=== PATIENT | female | born 1950 | race Caucasian/White ===

== ENCOUNTER → 2017-11-03 | Day surgery (SDC) | payer BC, OTHER ==
--- NOTE | 2017-11-04 14:34 | PATH ---
Cytology Non-Gynecological Report Patient Name: DENIA STEPHEN [facility]. Rec. #: [id number] /Age/Gender: 1950 (Age: 67) / F Account: [id number] Location: RADIOLOGY Taken: 11/03/2017 Received: 11/03/2017 Reported: 11/04/2017 Physicians: Alis Hay M.D. Specimen(s) Received RIGHT THYROID FNA Clinical History None Provided Final Diagnosis THYROID, RIGHT, FINE NEEDLE ASPIRATION: SATISFACTORY FOR EVALUATION. BETHESDA : PAPILLARY THYROID CARCINOMA. ATYPICAL FOLLICULAR CELLS WITH ENALRGED NUCLEI, NUCLEAR GROOVES, INTRANUCLEAR CLEARING, AND INTRANUCLEAR PSEUDOINCLUSIONS DISPERSED PAPILLARY AND SYNCITIAL FRAGMENTS. Interdepartmental case review with consensus on diagnosis, November 04, 2017. Electronically Signed Magan Duffy M.D. Addendum Reported: 11/09/2017 Addendum Diagnosis This case was discussed with Dr. Ohara on November 08, 2017. Magan Duffy M.D. Gross Description Received are six direct smears, three of which are air-dried and Diff-Quik stained, and three of which are alcohol fixed and Pap stained. Also received is 20 ml of bloody formalin from which one cellblock is prepared.
== END | disposition home or self-care (01) ==
LOC: JRADIR 07:58
PROVIDERS: ATTEND Internal Medicine Endocrinology, Diabetes & Metabolism
PROC: 0G9H3ZX Drainage of Right Thyroid Gland Lobe, Percutaneous Approach, Diagnostic (ICD-10-PCS; principal; 2017-11-03)
DX: E04.1 Nontoxic single thyroid nodule (principal)
CPT/HCPCS: 76942; 88173; 88305-TC

== ENCOUNTER 2018-10-18 16:21 | Inpatient (IN) | payer BC, OTHER ==
--- NOTE | 2018-10-18 16:41 | PDOC ---
History of Present Illness - General Chief Complaint: Irregular Heart Beat Stated Complaint: REF. BY DOCTOR Time Seen by Provider: 10/18/18 16:38 History Source: Patient, Family Exam Limitations: Language Barrier - History of Present Illness Initial Comments: 68 yo rwandan speaking F w a pmh of HTN, Hypothyroidism, HLD, GERD, multiple surgeries, NIDDM, TIA, GERD, osteoarthritis, osteoporosis presents to the ER via private auto sent in from Dr. Lev Ingram's office. Her chief complaint in the ER is that her heart rate is slow, she has a headache and some shortness of breath. The patient also states she has been experiencing left face , arm, and leg numbness since 8 AM this morning when she woke up. PCP: Favian Avina [employer] Teacher: Lev ingram Cardiology: Dr. Rashid PSH: C-spine surgery, B/L TKR, B/L shoulder sx, B/L bunion sx, B/L hand sx, hysterectomy Social Hx: Denies smoking, drinking, or other substance usage. Allergies: Aspirin, egg, egg yolk Meds: Norvasc, metformin, vitamin D3, crestol, prilosec, lyrica Past History - Past Medical History Allergies/Adverse Reactions: Allergies Allergy/AdvReac Type Severity Reaction Status Date / Time aspirin Allergy Verified 04/13/16 18:53 egg Allergy Verified 04/13/16 18:53 egg yolk Allergy Verified 04/13/16 18:53 Home Medications: Ambulatory Orders Celecoxib [CeleBREX -] 50 mg PO BID 04/05/16 Donepezil HCl [Aricept -] 10 mg PO DAILY 04/05/16 Escitalopram Oxalate [Lexapro -] 10 mg PO DAILY 04/05/16 Levothyroxine [Synthroid -] 50 mcg PO DAILY 04/05/16 Omeprazole Magnesium [Prilosec] 40 mg PO DAILY 04/05/16 Simvastatin [Zocor -] 40 mg PO HS 04/05/16 traZODone HCL [Trazodone HCl] 50 mg PO ASDIR 04/05/16 Ramipril [Altace] 2.5 mg PO DAILY #30 capsule 04/07/16 Acetaminophen/Caffeine/Butalb [Fioricet -] 1 tab PO Q6H PRN #12 tablet MDD 4 Butalb/Acetaminophen/Caffeine [Fioricet 50-300-40 mg Capsule] 1 each PO QID PRN #12 capsule 04/14/16 Pregabalin [Lyrica -] 75 mg PO TID #90 capsule MDD 3 06/09/18 COPD: No HTN: Yes Hypercholesterolemia: Yes - Suicide/Smoking/Psychosocial Hx Smoking History: Never smoked Have you smoked in the past 12 months: No If you are a former smoker, when did you quit?: 25 years ago Hx Alcohol Use: No Drug/Substance Use Hx: No Substance Use Type: None Review of Systems - Review of Systems Able to Perform ROS?: Yes Comments:: CONSTITUTIONAL: Absent: fever, no chills, no fatigue EYES: Absent: visual changes ENT: Absent: ear pain, no sore throat CARDIOVASCULAR: Absent: chest pain, no palpitations RESPIRATORY: Present: SOB Absent: cough GI: Absent: abdominal pain, no nausea, no vomiting, no constipation, no diarrhea GENITOURINARY: Absent: dysuria, no frequency, no hematuria MUSKULOSKELETAL: Absent: back pain, no arthralgia, no myalgia SKIN: Absent: rash NEURO: Present: headache, paresthesia, tingling Absent: focal weakness, dizziness, unsteady gait, seizure, mental status changes , bladder or bowel incontinence *Physical Exam - Vital Signs Last Vital Signs Temp Pulse Resp BP Pulse Ox 97.9 F 42 L 22 H 158/73 100 10/18/18 16:32 10/18/18 19:12 10/18/18 19:12 10/18/18 19:12 10/18/18 19:12 - Physical Exam Comments: GENERAL: Well-appearing, well-nourished. No apparent distress. HEENT: Normocephalic, atraumatic. PERRL, EOM intact. CARDIOVASCULAR: Bradycardic rate. Normal S1, S2. Regular rhythm. PULMONARY: No evidence of respiratory distress. Lungs clear to auscultation bilaterally. No wheezing, rales or rhonchi. ABDOMEN: Soft, non-distended, non-tender. EXTREMITIES: Normal ROM in all four extremities. No gross deformities. SKIN: Warm, dry. No rash NEUROLOGICAL: Alert, awake, appropriate. Cranial nerves 2-12 intact. No deficits to light touch in face, upper extremities and lower extremities. No motor deficits in the in face, upper extremities and lower extremities. Normal speech. Heart Score/ECG Review - History History: Slightly suspicious - Electrocardiogram EKG: Normal - Age Age: >/= 65 - Risk Factors Risk Factors Heart Score: Yes Hx Hypercholesterolemia, Yes Hx Hypertension, Yes Hx Diabetes Based on the list above the patient has:: >/=3 risk factors or Hx atherosclerotic disease - Troponin Troponin: </= normal limit - Score Heart Score - Total: 4 - ECG Intrepretation Rhythm: Regular Rhythm - [place]veld: Normal - QRS Widened: RBBB - ECG Impressions Normal ECG: No Bradycardia: Yes ED Treatment Course - LABORATORY CBC & Chemistry Diagram: 10/18/18 17:23 10/18/18 17:23 - ADDITIONAL ORDERS Additional order review: Laboratory Results 10/18/18 10/18/18 10/18/18 17:23 17:23 17:23 PT with INR INR Sodium 139 Potassium 4.8 Chloride 106 Carbon Dioxide 25 Anion Gap 9 BUN 18 Creatinine 0.8 Creat Clearance w eGFR 71.76 Random Glucose 90 Calcium 9.4 Magnesium 2.0 Total Bilirubin 0.3 AST 74 H ALT 88 H Alkaline Phosphatase 211 H Creatine Kinase 86 Troponin I < 0.02 B-Natriuretic Peptide 170.3 H Total Protein 7.9 Albumin 2.6 L TSH 0.90 Free T4 1.38 Blood Type A POSITIVE Antibody Screen Negative 10/18/18 17:23 PT with INR Cancelled INR Cancelled Sodium Potassium Chloride Carbon Dioxide Anion Gap BUN Creatinine Creat Clearance w eGFR Random Glucose Calcium Magnesium Total Bilirubin AST ALT Alkaline Phosphatase Creatine Kinase Troponin I B-Natriuretic Peptide Total Protein Albumin TSH Free T4 Blood Type Antibody Screen 10/18/18 17:23 RBC 4.92 MCV 82.8 MCHC 32.2 RDW 14.6 MPV 10.0 D Neutrophils % 48.7 Lymphocytes % 38.1 Monocytes % 7.2 Eosinophils % 4.8 H Basophils % 1.2 - RADIOLOGY Radiology Studies Ordered: Category Date Time Status HEAD CT WITHOUT CONTRAST [CT] Stat CT Scan 10/18/18 17:12 Completed CHEST X-RAY PORTABLE* [RAD] Stat Radiology 10/18/18 16:41 Completed Radiograph Interpretation: Head CT: Cranial CT without contrast Clinical information: neuro/altered mental status/ headache No intraparenchymal hemorrhage is seen. There is no CT evidence of acute subarachnoid hemorrhage. Correlate clinically. No extra-axial fluid collection is noted. There is no discrete infarct within the limitations of CT. As on a previous CT study of 04/13/2016 an approximately 0.6 cm calcified dural based focus is seen along the right parietal lobe at the mid to high convexity level laterally probably representing a meningioma. No perilesional edema is seen. There is no gross intra -axial mass lesion on noncontrast imaging. The ventricles and cisterns appear unremarkable. No calvarial defect is noted. The partially imaged paranasal sinuses demonstrate no opacification. Impression: No CT evidence of acute intracranial pathology. There is been no obvious interval change comparison to a prior CT exam of 04/13/2016. A 0.6 cm calcified dural based right parietal focus is again seen probably representing a stable meningioma. Correlation with one year follow-up MRI/CT is suggested to document continued stability. - Medications Given in the ED: ED Medications Discontinued Medications Generic Name Dose Route Start Last Admin Trade Name Freq PRN Reason Stop Dose Admin Acetaminophen 1,000 mg 10/18/18 19:29 10/18/18 20:16 Ofirmev Injection - IVPB 10/18/18 19:30 1,000 mg ONCE ONE Administration Clopidogrel Bisulfate 75 mg 10/18/18 19:45 10/18/18 20:45 Plavix - PO 10/18/18 19:46 75 mg ONCE ONE Administration Metoclopramide HCl 10 mg 10/18/18 19:30 10/18/18 20:45 Reglan Injection - IVPUSH 10/18/18 19:31 10 mg ONCE ONE Administration Sodium Chloride 1,000 ml 10/18/18 19:30 10/18/18 20:16 Normal Saline - IV 10/18/18 19:31 1,000 ml ONCE ONE Administration Medical Decision Making - Medical Decision Making 68 yo rwandan speaking F w a pmh of HTN, Hypothyroidism, HLD, GERD, multiple surgeries, NIDDM, TIA, GERD, osteoarthritis, osteoporosis presents to the ER via private auto sent in from Dr. Lev Ingram's office. Her chief complaint in the ER is that her heart rate is slow, she has a headache and some shortness of breath. The patient also states she has been experiencing left face , arm, and leg numbness since 8 AM this morning when she woke up. VS: Bradycardia, otherwise wnl DDx IBNLT: CVA/TIA, ACS/RI, arrhythmia, hypo/hyperthyroidism, electrolyte/ metabolic derangement, PNA, UTI, pneumothorax. Plan: Labs, Urine, EKG, CXR, Head CT, cards consult, neuro consult, admit tele. EKG: Sinus Neo. Cards Consult - Dr. Rodriguez - Agrees with plan. Neuro Consult - Dr. mondragon - agrees with plan reccommends giving 75 of clopidogrel bc patient is allergic to aspirin. He will see patient later tongiht. Labs notable for elevated LFT's Head Ct shows no new acute pathology. CXR: unremarkable. Will admit to Tele Obs for r/o stroke and to have a more thorough cardio and neuro work up including echo, brain MRI, carotid doppler. *DC/Admit/Observation/Transfer Diagnosis at time of Disposition: Bradycardia, Paresthesia, Left face and left arm tingling, Left facial numbness , Elevated LFTs, Stroke-like symptoms - Discharge Dispostion Condition at time of disposition: Stable Decision to Admit order: Yes - Referrals - Patient Instructions - Post Discharge Activity tPA Exclusion checklist 3-4.5h - Time Elapsed Date last known well: 10/17/18 Time last known well: 21:00 Elaspsed time: 1 Day(s) and 1 Hour(s) and 16 Minutes - Thrombolytic Therapy Candidate Is patient eligible for thrombolytic therapy: No - Exclusion Criteria 3-4.5 hr SBP greater than 185 or DBP greater than 110mmHg despite tx: No Recent IC/spinal surgery,head trauma or stroke<3mos.: No Hx IC hemorrhage, IC neoplasm, AV malformation or aneurysm: No Active internal bleeding: No Blding diathesis(low plt ct, inc PTT,INR>1.7 or use of NOAC): No Symptoms suggest subarachnoid hemorrhage: No CT demonstrates multilobar infarct(>1/3 cerebral hemiphere): No Arterial puncture at noncompressible site in previous 7 days: No Blood glucose concentration less than 50mg/dL (2.7mmol/L): No - Relative Exclusion Criteria 3-4.5 hr Life expectancy <1 yr or severe co-morbid illness: No : No Patient/family refused: No Rapid improvement: Yes Stroke severity too mild: Yes Recent acute RI (w/in previous 3 months): No Seizure at onset with postictal residual neuro impairments: No Major surgery or serious trauma w/in previous 14 days: No Recent GI or hemorrhage (w/in previous 21 days): No - Add'l Relative Exclusion 3-4.5 hr Age > 80: No Hx of both diabetes AND prior ischemic stroke: Yes Taking an oral anticoagulant regardless of INR: Yes NIHSS >25: No - Ineligibility reason(s) Reasons No tPA given: Outside of window - delayed arrival NIH Stroke Scale - Last Known Well Date/Time & Onset Date Last Known Well: 10/17/18 Time Last Known Well: 21:00 - Initial Evaluation Level of consciousness: Alert Ask patient the month and their age: Answers both correctly Ask patient to open & close eyes; make fist and let go: Obeys both correctly Best gaze (horizontal eye movement): Normal Visual field testing: No visual field loss Facial paresis (Show teeth/raise eyebrows/close eyes tight): Normal symmetrical movement Motor Function: Left Arm: Normal Motor Function: Right Arm: Normal (extends arm 90 (or 45) degrees for 10 seconds without drift Motor Function: Left Leg: Normal (extends leg 30 degrees for 5 seconds without drift) Motor Function: Right Leg: Normal (extends leg 30 degrees for 5 seconds without drift) Limb Ataxia: No ataxia Sensory(Use pinprick test arms,legs,trunk,face/side to side): Normal Best language (Describe picture, name items, read sentences): No Aphasia Dysarthria (read several words): Normal articulation Extinction and Inattention: No abnormality - Total Score NIH Stroke Scale Score: 0
[2018-10-18 17:38] LABS: BASO % 1.2 % (0-2.0); EOS % 4.8 % (0-4.5); HEMATOCRIT 40.7 % (32.4-45.2); HEMOGLOBIN 13.1 GM/dL (10.7-15.3); LYMPH % 38.1 % (8-40); MCH 26.6 pg (25.7-33.7); MCHC 32.2 g/dl (32.0-36.0); MEAN CELL VOLUME 82.8 fl (80-96); MONO % 7.2 % (3.8-10.2); NEUT % 48.7 % (42.8-82.8); PLATELET COUNT 259 K/MM3 (134-434); RBC 4.92 M/mm3 (3.60-5.2); RDW 14.6 % (11.6-15.6); WHITE BLOOD COUNT 8.9 K/mm3 (4.0-10.0)
--- NOTE | 2018-10-18 17:54 | PDOC ---
Documentation entered by Beatriz Caba SCRIBE, acting as scribe for Jennifer Stanford DO. Jennifer Stanford DO: This documentation has been prepared by the Gertrudis ramirez Nirvannie, SCRIBE, under my direction and personally reviewed by me in its entirety. I confirm that the documentation accurately reflects all work, treatment, procedures, and medical decision making performed by me. Attending Attestation - Resident Resident Name: Stuart Torres - ED Attending Attestation I have performed the following: I have examined & evaluated the patient, The case was reviewed & discussed with the resident, I agree w/resident's findings & plan - HPI HPI: 10/18/18 17:57 The patient is a 68 year old female, with a significant past medical history of HTN, HLD, NIDDM, GERD, and multiple surgeries, NIDDM, TIA, GERD, osteoarthritis , osteoporosis, who presents to the emergency department with, bradycardia (on EKG), headache, left sided numbness (facial, arm, leg . Prior to his arrival, patient was at his endocrinologists office at which time he was advised to report to the ED for further evaluation. As per EMR, patient presented with similar symptoms in 2016 at which time it was diagnosed as a tension headache. She denies recent fevers, chills, or dizziness. She denies recent nausea, vomit , diarrhea or constipation. She denies recent dysuria, frequency, urgency or hematuria. Allergies: Aspirin, egg, egg yolk Social history: Nonsmoker. Denies EtOH use and recreational drug use. Primary Care Physician: Dr. Favian Avina [employer] Sergeant: Dr. Ohara Cardiology: Dr. Rashid Neurologist: Dr. Hector Last known well: 9:00pm - Physicial Exam PE: 10/18/18 18:57 Constitutional: Awake, alert, oriented. No acute distress. Head: Normocephalic. Atraumatic Eyes: PERRL. EOMI. Conjunctivae are not pale. ENT: Mucous membranes are moist and intact. Posterior pharynx without exudates or erythema. Uvula midline. Neck: Supple. Full ROM. No lymphadenopathy. Cardiovascular: +Bradycardic. Regular rhythm. Distal pulses are 2+ and symmetric. Pulmonary/Chest: No evidence of respiratory distress. Clear to auscultation bilaterally No wheezing, rales or rhonchi. Abdominal: Soft and non-distended. There is no tenderness. No rebound, guarding or rigidity. No organomegaly. No palpable masses. Good bowel sounds. Back: No CVA tenderness. Musculoskeletal: No edema. No cyanosis. No clubbing. Full range of motion in all extremities. No calf tenderness. Radial/pedal pulses are intact and 2+ bilaterally Skin: Skin is warm and dry. No petechiae. No purpura. Neurological: +Decreased sensation to the left side of the face, arms, and legs. Alert and oriented to person, place, and time. Cranial nerves II-XII are grossly intact. Normal speech. Strength is grossly symmetric. Psychiatric: Good eye contact. Normal interaction, affect and behavior. - Medical Decision Making 10/18/18 19:16 a/p: 68yo female with peters, paresthesias to L face and L arm/leg that she woke up with today -seen by Dr. Ohara and sent in for bradycardia and symptoms -pt arrives bradycardic -c/o headache -no syncope -no cp -will send labs, tsh, ekg, head ct -outside the window for tpa -mild sensory changes on exam, but no weakness -will monitor and reassess 10/18/18 19:29 I, Dr. Jennifer Stanford, DO, attest that this document has been prepared under my direction and personally reviewed by me in its entirety. I further attest, that it accurately reflects all work, treatment, procedures and medical decision -making performed by me. 10/18/18 19:29 no acute findings on head ct 10/18/18 19:29 mildly elevated lfts pending ua 10/18/18 20:08 microblog sent to [facility] for obs for peters and bradycardia 10/18/18 20:37 resident discussed the case with [facility] - Dr. Reza who agrees with obs placement Heart Score/ECG Review - ECG Intrepretation Comment:: 10/18/18 17:54 sinus durga at 42, rbbb, lvh, t wave inversions inferior leads- unchanged from 2016 ekg
[2018-10-18 18:16] LABS: ALBUMIN 2.6 g/dl (3.4-5.0); ALK PHOS 211 U/L (45-117); ANION GAP 9 MMOL/L (8-16); BILIRUBIN,TOTAL 0.3 mg/dL (0.2-1); BLOOD UREA NITROGEN 18 mg/dL (7-18); CALCIUM 9.4 mg/dL (8.5-10.1); CHLORIDE 106 mmol/L (98-107); CO2 25 mmol/L (21-32); CREATININE 0.8 mg/dL (0.55-1.3); GLUCOSE,RANDOM 90 mg/dL (74-106); N-TERMINAL BNP 170.3 pg/ml (5-125); POTASSIUM 4.8 mmol/L (3.5-5.1); SGOT/AST 74 U/L (15-37); SGPT/ALT 88 U/L (13-61); SODIUM 139 mmol/L (136-145); TOT PROT 7.9 g/dl (6.4-8.2)
[2018-10-18] MEDS ORDERED: ACETAMINOPHEN 1000 MG/100 ML VIAL (NON FORMULARY) IVPB ONE (19:29)
[2018-10-18] MEDS ORDERED: SODIUM CHLORIDE 0.9% 500 ML INFUS.BAG IV ONE (19:30)
[2018-10-18] MEDS ORDERED: METOCLOPRAMIDE HCL INJECTION 10 MG/2 ML VIAL IVPUSH ONE (19:30)
[2018-10-18] MEDS ORDERED: CLOPIDOGREL BISULFATE 75 MG TABLET (FP) PO ONE (19:45)
[2018-10-18] MEDS ORDERED: METOCLOPRAMIDE HCL INJECTION 10 MG/2 ML VIAL ONE (19:57)
[2018-10-18] MEDS ORDERED: ACETAMINOPHEN INJECTION 100 ML IVPB ONE (19:57)
[2018-10-18] MEDS ORDERED: CLOPIDOGREL BISULFATE 75 MG TABLET (FP) ONE (20:26)
--- NOTE | 2018-10-18 20:37 | HP ---
CHIEF COMPLAINT: left sided numbness, weakness PCP: Dr. Favian Avina HISTORY OF PRESENT ILLNESS: 68yo woman c/o left facial upper extremity and lower extremity paresthesias as well as paresthesias around her lips which started 02/17 when she woke up in the morning, associated with headache. She also c/o some left upper and lower extremity weakness. SHe denied any dysarthria, dysphagia, ataxia, visual, or hearing disturbances. She went for endocrine apt with Dr. Ohara and found to be very bradycardic. Denied any syncopal episodes but reported some fatigue with exertion. She has urged to come to hospital for further evaluation. ER course was notable for: (1) head ct (2) ekg (3) Recent Travel: no PAST MEDICAL HISTORY: HTN, HLD, NIDDM, GERD, NIDDM, TIA, GERD, osteoarthritis, osteoporosis, hypothyroidism s/p thyroidectomy, bradycardia PAST SURGICAL HISTORY: multiple - thyroidectomy, b/l shoulder surgery, b/l knee replacement, neck surgery with cervical hardware in place, b/l ocular lens replacement Social History: Smoking: no Alcohol: no Drugs: no Family History: no Allergies aspirin Allergy (Verified 04/13/16 18:53) egg Allergy (Verified 04/13/16 18:53) egg yolk Allergy (Verified 04/13/16 18:53) HOME MEDICATIONS: Home Medications Medication Instructions Recorded Celecoxib [CeleBREX -] 50 mg PO BID 04/05/16 Donepezil HCl [Aricept -] 10 mg PO DAILY 04/05/16 Escitalopram Oxalate [Lexapro -] 10 mg PO DAILY 04/05/16 Levothyroxine [Synthroid -] 50 mcg PO DAILY 04/05/16 Omeprazole Magnesium [Prilosec] 40 mg PO DAILY 04/05/16 Simvastatin [Zocor -] 40 mg PO HS 04/05/16 traZODone HCL [Trazodone HCl] 50 mg PO ASDIR 04/05/16 Ramipril [Altace] 2.5 mg PO DAILY #30 capsule 04/07/16 Acetaminophen/Caffeine/Butalb 1 tab PO Q6H PRN #12 tablet MDD 4 04/14/16 [Fioricet -] Butalb/Acetaminophen/Caffeine 1 each PO QID PRN #12 capsule 04/14/16 [Fioricet 50-300-40 mg Capsule] Pregabalin [Lyrica -] 75 mg PO TID #90 capsule MDD 3 06/09/18 REVIEW OF SYSTEMS CONSTITUTIONAL: Absent: fever, chills, diaphoresis, malaise, loss of appetite, weight change present- generalized weakness, HEENT: Absent: rhinorrhea, nasal congestion, throat pain, throat swelling, difficulty swallowing, mouth swelling, ear pain, eye pain, visual changes CARDIOVASCULAR: Absent: chest pain, syncope, palpitations, irregular heart rate, lightheadedness , peripheral edema RESPIRATORY: Absent: cough, shortness of breath, orthopnea, wheezing, stridor, hemoptysis present- dyspnea with exertion, GASTROINTESTINAL: Absent: abdominal pain, abdominal distension, nausea, vomiting, diarrhea, constipation, melena, hematochezia GENITOURINARY: Absent: dysuria, frequency, urgency, hesitancy, hematuria, flank pain, genital pain MUSCULOSKELETAL: Absent: myalgia, arthralgia, joint swelling, back pain, neck pain SKIN: Absent: rash, itching, pallor HEMATOLOGIC/IMMUNOLOGIC: Absent: easy bleeding, easy bruising, lymphadenopathy, frequent infections ENDOCRINE: Absent: unexplained weight gain, unexplained weight loss, heat intolerance, cold intolerance NEUROLOGIC: Absent, dizziness, unsteady gait, seizure, mental status changes, bladder or bowel incontinence present- focal weakness or paresthesias, : headache PSYCHIATRIC: Absent: anxiety, depression, suicidal or homicidal ideation, hallucinations. PHYSICAL EXAMINATION Vital Signs - 24 hr 10/18/18 10/18/18 16:32 19:12 Temperature 97.9 F Pulse Rate 45 L Pulse Rate [ 42 L Apical] Respiratory 16 22 H Rate Blood Pressure 141/81 Blood Pressure 158/73 [Right Arm] O2 Sat by Pulse 96 100 Oximetry (%) GENERAL: Awake, alert, and fully oriented, in no acute distress. HEAD: Normal with no signs of trauma. EYES: Pupils equal, round and reactive to light, extraocular movements intact, sclera anicteric, conjunctiva clear. No lid lag. EARS, NOSE, THROAT: Ears normal, nares patent, oropharynx clear without exudates. Moist mucous membranes. NECK: Normal range of motion, scar visible s/p thyroidectomy LUNGS: Breath sounds equal, clear to auscultation bilaterally. No wheezes, and no crackles. No accessory muscle use. HEART: Regular rate and rhythm, normal S1 and S2 without murmur, rub or gallop. ABDOMEN: Soft, nontender, not distended, normoactive bowel sounds, no guarding, no rebound, no masses. MUSCULOSKELETAL: Normal range of motion at all joints. No bony deformities or tenderness. No CVA tenderness. UPPER EXTREMITIES: 2+ pulses, warm, well-perfused. No cyanosis. No clubbing. No peripheral edema. LOWER EXTREMITIES: 2+ pulses, warm, well-perfused. No calf tenderness. No peripheral edema. NEUROLOGICAL: decreased sensation on left face, left upper ext, left lower ext relative to her right side. Motor 4/5 on left upper and lower ext, speech intact , cranial nerves otherwise grossly intact PSYCHIATRIC: Cooperative. Good eye contact. Appropriate mood and affect. SKIN: Warm, dry, normal turgor, no rashes or lesions noted, normal capillary refill. Laboratory Results - last 24 hr 10/18/18 10/18/18 10/18/18 17:23 17:23 17:23 WBC 8.9 RBC 4.92 Hgb 13.1 Hct 40.7 MCV 82.8 MCH 26.6 MCHC 32.2 RDW 14.6 Plt Count 259 MPV 10.0 D Absolute Neuts (auto) 4.3 Neutrophils % 48.7 Lymphocytes % 38.1 Monocytes % 7.2 Eosinophils % 4.8 H Basophils % 1.2 Nucleated RBC % 0 PT with INR Cancelled INR Cancelled Sodium 139 Potassium 4.8 Chloride 106 Carbon Dioxide 25 Anion Gap 9 BUN 18 Creatinine 0.8 Creat Clearance w eGFR 71.76 Random Glucose 90 Calcium 9.4 Magnesium 2.0 Total Bilirubin 0.3 AST 74 H ALT 88 H Alkaline Phosphatase 211 H Creatine Kinase 86 Troponin I < 0.02 B-Natriuretic Peptide 170.3 H Total Protein 7.9 Albumin 2.6 L TSH Free T4 Blood Type Antibody Screen 10/18/18 10/18/18 17:23 17:23 WBC RBC Hgb Hct MCV MCH MCHC RDW Plt Count MPV Absolute Neuts (auto) Neutrophils % Lymphocytes % Monocytes % Eosinophils % Basophils % Nucleated RBC % PT with INR INR Sodium Potassium Chloride Carbon Dioxide Anion Gap BUN Creatinine Creat Clearance w eGFR Random Glucose Calcium Magnesium Total Bilirubin AST ALT Alkaline Phosphatase Creatine Kinase Troponin I B-Natriuretic Peptide Total Protein Albumin TSH 0.90 Free T4 1.38 Blood Type A POSITIVE Antibody Screen Negative Imaging studies reviewed - head CT was negative for acute insults ekg showed sinus bradycardia ASSESSMENT/PLAN: #TIA r/o CVA -clinically c/w CVA, but lacks radiological findings. left sided paresthesias/ weakness still persist. -tele/obs -NPO -bed rest -fall precautions -clopidogrel (ASA allergy) -statin -moderate to high dose -echo -carotid duplex u/s -brain MRI- no contrast -neurology evaluation -physical therapy -speech and swallow eval -tylenol po prn for headache #Bradycardia -sinus bradycardia, BP stable. Possibly symptomatic as patient c/o early exertion. SHould r/o hypothyroidism as patient had recent thyroidectomy -monitor on telemetry -send TSH, free t4 -avoid bblockers, CCB -cardiology consult #Hypothyroidism -tsh, t4 -c/w home dose levothyroxine -75mcg daily #DM -BGM - pt NPO for now -order a1c #DVT ppx -heparin sc Visit type - Emergency Visit Emergency Visit: Yes ED Registration Date: 10/18/18 Care time: The patient presented to the Emergency Department on the above date and was hospitalized for further evaluation of their emergent condition. - New Patient This patient is new to me today: Yes Date on this admission: 10/18/18 - Critical Care Critical Care patient: No
[2018-10-18] MEDS ORDERED: ACETAMINOPHEN/CAFFEINE/BUTALBITAL 1 TAB PO PRN (20:44)
[2018-10-18] MEDS ORDERED: PREGABALIN 25 MG CAPSULE ONE (22:00)
[2018-10-18] MEDS ORDERED: HEPARIN NA (PORCINE) 5,000 UNITS/ML 1ML VIAL ONE (22:00)
[2018-10-18] MEDS ORDERED: ACETAMINOPHEN 325 MG TABLET (FP) PO PRN (22:11)
[2018-10-18 22:23] LABS: PH,URINE 6.5 (5.0-8.0); URINE APPEARANCE CLOUDY; URINE BILIRUBIN NEGATIVE (NEGATIVE); URINE COLOR YELLOW; URINE GLUCOSE (UA) NEGATIVE (NEGATIVE); URINE KETONE NEGATIVE (NEGATIVE); URINE LEUK ESTERASE NEGATIVE (NEGATIVE); URINE NITRITE NEGATIVE (NEGATIVE); URINE PROTEIN NEGATIVE (NEGATIVE); URINE UROBILINOGEN 0.2 mg/dL (0.2-1.0)
[2018-10-18] MEDS: HEPARIN NA (PORCINE) 5,000 UNITS/ML 1ML VIAL SQ SCH (22:29)
[2018-10-18] MEDS: PREGABALIN 75 MG CAPSULE PO SCH (22:29)
[2018-10-19] MEDS ORDERED: PREGABALIN 25 MG CAPSULE ONE ×2 (05:37→15:52)
[2018-10-19] MEDS ORDERED: LEVOTHYROXINE NA 25 MCG TABLET (FP) ONE (05:37)
[2018-10-19] MEDS: LEVOTHYROXINE NA 75 MCG TABLET (FP) PO SCH (06:03)
[2018-10-19] MEDS: PREGABALIN 75 MG CAPSULE PO SCH ×2 (06:03→22:09)
[2018-10-19] MEDS ORDERED: LEVOTHYROXINE NA 50 MCG TABLET (FP) PO SCH (07:00)
[2018-10-19 08:25] LABS: BASO % 0.5 % (0-2.0); EOS % 5.4 % (0-4.5); HEMATOCRIT 36.8 % (32.4-45.2); HEMOGLOBIN 11.8 GM/dL (10.7-15.3); LYMPH % 43.2 % (8-40); MCH 26.3 pg (25.7-33.7); MEAN PLT VOLUME 10.1 fl (7.5-11.1); MONO % 7.1 % (3.8-10.2); NEUT % 43.8 % (42.8-82.8); PLATELET COUNT 245 K/MM3 (134-434); RBC 4.49 M/mm3 (3.60-5.2); RDW 14.3 % (11.6-15.6); WHITE BLOOD COUNT 7.2 K/mm3 (4.0-10.0)
[2018-10-19 08:52] LABS: ANION GAP 6 MMOL/L (8-16); BLOOD UREA NITROGEN 14 mg/dL (7-18); CALCIUM 8.9 mg/dL (8.5-10.1); CHLORIDE 107 mmol/L (98-107); CO2 28 mmol/L (21-32); CREATININE 0.8 mg/dL (0.55-1.3); GLUCOSE,RANDOM 94 mg/dL (74-106); POTASSIUM 4.4 mmol/L (3.5-5.1); SODIUM 141 mmol/L (136-145)
--- NOTE | 2018-10-19 10:00 | CON.NEURO ---
Consult Consult Specialty:: Tawny Referred by:: ER Reason for Consultation:: Parathesia - History of Present Illness History of Present Illness: 68 years old woman with pmh CAD OA HTN Chol Anxiety Memory problem Came in with numbness No fall NIHSS was 1 Not a candidate for TPA - History Source History Provided By: Patient Limitations to Obtaining History: No Limitations - Alcohol/Substance Use Hx Alcohol Use: No - Smoking History Smoking history: Never smoked Have you smoked in the past 12 months: No If you are a former smoker, when did you quit?: 25 years ago Home Medications - Allergies Allergies/Adverse Reactions: Allergies Allergy/AdvReac Type Severity Reaction Status Date / Time aspirin Allergy Verified 10/19/18 09:59 egg Allergy Verified 10/19/18 09:59 egg yolk Allergy Verified 10/19/18 09:59 - Home Medications Home Medications: Ambulatory Orders Celecoxib [CeleBREX -] 50 mg PO BID 04/05/16 Donepezil HCl [Aricept -] 10 mg PO DAILY 04/05/16 Escitalopram Oxalate [Lexapro -] 10 mg PO DAILY 04/05/16 Levothyroxine [Synthroid -] 50 mcg PO DAILY 04/05/16 Omeprazole Magnesium [Prilosec] 40 mg PO DAILY 04/05/16 Simvastatin [Zocor -] 40 mg PO HS 04/05/16 traZODone HCL [Trazodone HCl] 50 mg PO ASDIR 04/05/16 Ramipril [Altace] 2.5 mg PO DAILY #30 capsule 04/07/16 Acetaminophen/Caffeine/Butalb [Fioricet -] 1 tab PO Q6H PRN #12 tablet MDD 4 Butalb/Acetaminophen/Caffeine [Fioricet 50-300-40 mg Capsule] 1 each PO QID PRN #12 capsule 04/14/16 Pregabalin [Lyrica -] 75 mg PO TID #90 capsule MDD 3 06/09/18 Family Disease History - Family Disease History Family History: Denies (CVA) Review of Systems - Review of Systems Constitutional: reports: No Symptoms Eyes: reports: No Symptoms Neurological: reports: Headache, Incoordination, Numbness, Parasthesia Physical Exam-Neuro Vital Signs: Vital Signs Temperature 97.9 F 10/19/18 04:17 Pulse Rate 42 L 10/19/18 04:17 Respiratory Rate 22 H 10/18/18 19:12 Blood Pressure 131/72 10/19/18 04:17 O2 Sat by Pulse Oximetry (%) 96 10/19/18 04:17 Constitutional: Yes: Well Nourished Neck: Yes: WNL Labs: CBC, BMP 10/19/18 07:20 10/19/18 07:20 INR, PTT INR Cancelled 10/18/18 17:23 - Neuro Exam Level Of Consciousness: Yes: Oriented to Person, Oriented to Place, Oriented to Time Eyes: Yes: PERRLA Speech: WNL Dominant Hand: Right Cranial Nerves II-XII Intact: Yes Gag: Present Response to light touch: Normal Response to pain prick: Normal Response to temperature: Normal Response to vibration: Normal Motor Strength: 3/5: Left Arm, Right Arm, Left Leg, Right Leg Gait: Deferred Imaging - Results Cat Scan: Image Reviewed Problem List - Problems (1) Left facial numbness Assessment/Plan: Rule out Thalamic Lacunar stroke MRI brain with no Jack ASA ECho C duplex Code(s): R20.0 - ANESTHESIA OF SKIN
[2018-10-19] MEDS: PANTOPRAZOLE 40 MG TABLET (FP) PO SCH (10:47)
[2018-10-19] MEDS: ESCITALOPRAM OXALATE 10 MG TABLET (FP) PO SCH (10:47)
[2018-10-19] MEDS: RAMIPRIL 2.5 MG CAPSULE (FP) PO SCH (10:47)
[2018-10-19] MEDS: HEPARIN NA (PORCINE) 5,000 UNITS/ML 1ML VIAL SQ SCH ×2 (10:47→22:07)
--- NOTE | 2018-10-19 12:08 | EKG ---
Test Reason : Blood Pressure : / mmHG Vent. Rate : 042 BPM Atrial Rate : 042 BPM P-R Int : 172 ms QRS Dur : 124 ms QT Int : 548 ms P-R-T Axes : 041 -03 -10 degrees QTc Int : 457 ms MARKED SINUS BRADYCARDIA RIGHT BUNDLE BRANCH BLOCK MODERATE VOLTAGE CRITERIA FOR LVH, MAY BE NORMAL VARIANT ABNORMAL ECG WHEN COMPARED WITH ECG OF 13-APR-2016 21:30, NO SIGNIFICANT CHANGE WAS FOUND Confirmed by PETE COX, GERI ([id number]) on 10/19/2018 12:08:19 PM Referred By: Confirmed By:GERI FREEMAN MD
--- NOTE | 2018-10-19 13:40 | PN ---
Progress Note (short form) - Note Progress Note: continues to have numbness on the whole L side of her body. no improvement since arrival. denies Cp, SOB, fever, chills, N/V/C/D or dizzyness Current Medications Generic Name Dose Route Start Last Admin Trade Name Freq PRN Reason Stop Dose Admin Acetaminophen 650 mg 10/18/18 22:11 Tylenol - PO Q6H PRN HEADACHE Atorvastatin Calcium 40 mg 10/19/18 22:00 Lipitor - PO HS J LUIS Donepezil HCl 10 mg 10/19/18 22:00 Aricept - PO HS J LUIS Escitalopram Oxalate 10 mg 10/19/18 10:00 10/19/18 10:47 Lexapro - PO 10 mg DAILY J LUIS Administration Heparin Sodium (Porcine) 5,000 unit 10/18/18 22:00 10/19/18 10:47 Heparin - SQ 5,000 unit BID J LUIS Administration Levothyroxine Sodium 75 mcg 10/19/18 07:00 10/19/18 06:03 Synthroid - PO 75 mcg DAILY@0700 J LUIS Administration Pantoprazole Sodium 40 mg 10/19/18 10:00 10/19/18 10:47 Protonix - PO 40 mg DAILY J LUIS Administration Pregabalin 75 mg 10/18/18 22:00 10/19/18 06:03 Lyrica - PO 75 mg TID J LUIS Administration Ramipril 2.5 mg 10/19/18 10:00 10/19/18 10:47 Altace - PO 2.5 mg DAILY J LUIS Administration Last Vital Signs Temp Pulse Resp BP Pulse Ox 97.9 F 42 L 22 H 131/72 96 10/19/18 04:17 10/19/18 04:17 10/19/18 07:15 10/19/18 04:17 10/19/18 07:15 General NAD CV S1 S2 slow Lungs CTA B/L no wheezing/rales/rhonchi Abdomen soft NT/ND Extremities no pedal edema Neuro decreased sensation to whole L side of the face. weakness turning head to the L and on shoulder raise. strength 3/5 LUE and LLE. sensation also decreased to gross exam on the L. R side strength 5/5 and equal. negative dysmetria and no pronator drift CBCD WBC 7.2 K/mm3 (4.0-10.0) 10/19/18 07:20 RBC 4.49 M/mm3 (3.60-5.2) 10/19/18 07:20 Hgb 11.8 GM/dL (10.7-15.3) 10/19/18 07:20 Hct 36.8 % (32.4-45.2) 10/19/18 07:20 MCV 82.0 fl (80-96) 10/19/18 07:20 MCHC 32.0 g/dl (32.0-36.0) 10/19/18 07:20 RDW 14.3 % (11.6-15.6) 10/19/18 07:20 Plt Count 245 K/MM3 (134-434) 10/19/18 07:20 MPV 10.1 fl (7.5-11.1) 10/19/18 07:20 CMP Sodium 141 mmol/L (136-145) 10/19/18 07:20 Potassium 4.4 mmol/L (3.5-5.1) 10/19/18 07:20 Chloride 107 mmol/L (98-107) 10/19/18 07:20 Carbon Dioxide 28 mmol/L (21-32) 10/19/18 07:20 Anion Gap 6 MMOL/L (8-16) L 10/19/18 07:20 BUN 14 mg/dL (7-18) 10/19/18 07:20 Creatinine 0.8 mg/dL (0.55-1.3) 10/19/18 07:20 Creat Clearance w eGFR 71.76 (>60) 10/19/18 07:20 Calcium 8.9 mg/dL (8.5-10.1) 10/19/18 07:20 Total Bilirubin 0.3 mg/dL (0.2-1) 10/18/18 17:23 AST 74 U/L (15-37) H 10/18/18 17:23 ALT 88 U/L (13-61) H 10/18/18 17:23 Alkaline Phosphatase 211 U/L (45-117) H 10/18/18 17:23 Total Protein 7.9 g/dl (6.4-8.2) 10/18/18 17:23 Albumin 2.6 g/dl (3.4-5.0) L 10/18/18 17:23 A/P 68yo F with PMH hypothyroid and DM presented to the ER [facility] L facial and side numbness and weakness 1. L facial and side numbness/weakness- r/o CVA. symptoms have persisted. awaiting BRain MRI and echo. carotid doppler negative. will place on cardiac monitoring to r/o afib. seen by neuro. has asa allergy. will start plavix if MRI is +. and increase statin to high intensity at this time. swallow eval and PT assessment. 2. Sinus bradycardia- has hx of sinus bradycardia with RBBB. not symptomatic. had dobutamine stress last year for this reason which was not diagnostic as unable to achieve goal HR. no on beta or calcium jerrod. TSH WNL. f/u echo. cardio consulted 3. Elevated LFT- stable from previous admission. adbomainl u/s negative for acute disease. appears stable 4. Hypothyroid- TSH WNL. cont LT4 5. DM- check A1c. hold oral agents. bgm and iss 6. DVT ppx- hep sq 7. spoke [facility] daughter on the phone. all questions answered verbalized understanding and agreement with plan Visit type - Emergency Visit Emergency Visit: Yes ED Registration Date: 10/18/18 Care time: The patient presented to the Emergency Department on the above date and was hospitalized for further evaluation of their emergent condition. - New Patient This patient is new to me today: Yes Date on this admission: 10/19/18 - Critical Care Critical Care patient: No - Discharge Referral Referred to [facility] Med P.C.: No
--- NOTE | 2018-10-19 15:43 | ECHO ---
Name: DENIA STEPHEN Exam:Adult Echocardiogram Study Date: 10/19/2018 11:19 AM Age: 68 yrs Reason For Study: TIA Height: 63 in Weight: 154 lb BSA: 1.7 m2 MMode/2D Measurements & Calculations IVSd: 0.91 cm Ao root diam: 2.4 cm LVIDd: 4.2 cm LA dimension: 2.6 cm LVIDs: 2.6 cm LVPWd: 0.80 cm EDV(Teich): 80.3 ml LVOT diam: 2.0 cm ESV(Teich): 24.1 ml LAV (MOD-bp): 59.3 ml Doppler Measurements & Calculations MV E max will: 85.4 cm/sec Ao V2 max: 213.1 cm/sec MV A max will: 65.5 cm/sec Ao max P.2 mmHg MV E/A: 1.3 MV dec time: 0.20 sec MO(V,D): 1.6 cm2 LV V1 max P.2 mmHg MR max will: 506.8 cm/sec LV V1 max: 102.8 cm/sec MR max P.9 mmHg TR max will: 219.9 cm/sec Med Peak E' Will: 7.1 cm/sec TR max P.3 mmHg Med E/e': 12.1 Lat Peak E' Will: 11.0 cm/sec Lat E/e': 7.8 PI Vmax: 115.4 cm/sec Procedure A complete two-dimensional transthoracic echocardiogram was performed (2D, M-mode, Doppler and color flow Doppler). Left Ventricle The left ventricular size, thickness and function are normal. The left ventricular ejection fraction is normal. Ejection Fraction = 55-60%. The left ventricular wall motion is normal. Right Ventricle The right ventricle is normal in size and function. Atria Normal left and right atrial size and function. Mitral Valve There is mild mitral regurgitation. Tricuspid Valve No tricuspid regurgitation. There was insufficient TR detected to calculate RV systolic pressure. Aortic Valve No hemodynamically significant valvular aortic stenosis. No aortic regurgitation is present. Pulmonic Valve Trace pulmonic valvular regurgitation. Great Vessels The aortic root is normal size. Pericardium/Pleura There is no pericardial effusion. Interpretation Summary The left ventricular size, thickness and function are normal The right ventricle is normal in size and function. There is mild mitral regurgitation. Trace pulmonic valvular regurgitation. MD Fitz Laguerre 10/19/2018 03:42 PM
[2018-10-19] MEDS ORDERED: PREGABALIN 50 MG CAPSULE ONE (15:52)
[2018-10-19] MEDS: ATORVASTATIN CA 40 MG TABLET (FP) PO SCH (22:09)
[2018-10-19] MEDS: DONEPEZIL HCL 10 MG TABLET (FP) PO SCH (22:09)
[2018-10-20] MEDS: PREGABALIN 75 MG CAPSULE PO SCH ×2 (05:59→21:21)
[2018-10-20] MEDS: LEVOTHYROXINE NA 75 MCG TABLET (FP) PO SCH (06:00)
[2018-10-20 07:23] LABS: ALBUMIN 3.3 g/dl (3.4-5.0); BILIRUBIN,DIRECT 0.1 mg/dL (0.0-0.2); BILIRUBIN,TOTAL 0.4 mg/dL (0.2-1); TOT PROT 6.9 g/dl (6.4-8.2)
--- NOTE | 2018-10-20 09:25 | PN ---
Progress Note, Physician History of Present Illness: events noted on chart reviewed Still complaining of numbness on the left side of the face left arm MRI did not show any evidence of acute stroke Questionable 2 meningiomas We'll order EEG We'll consult neurosurgery no need for telemetry anymore - Current Medication List Current Medications: Active Medications Acetaminophen (Tylenol -) 650 mg PO Q6H PRN PRN Reason: HEADACHE Atorvastatin Calcium (Lipitor -) 40 mg PO HS [facility] Last Admin: 10/19/18 22:09 Dose: 40 mg Donepezil HCl (Aricept -) 10 mg PO HS [facility] Last Admin: 10/19/18 22:09 Dose: 10 mg Escitalopram Oxalate (Lexapro -) 10 mg PO DAILY [facility] Last Admin: 10/19/18 10:47 Dose: 10 mg Heparin Sodium (Porcine) (Heparin -) 5,000 unit SQ BID [facility] Last Admin: 10/19/18 22:07 Dose: 5,000 unit Levothyroxine Sodium (Synthroid -) 75 mcg PO DAILY@0700 [facility] Last Admin: 10/20/18 06:00 Dose: 75 mcg Pantoprazole Sodium (Protonix -) 40 mg PO DAILY [facility] Last Admin: 10/19/18 10:47 Dose: 40 mg Pregabalin (Lyrica -) 75 mg PO TID [facility] Last Admin: 10/20/18 05:59 Dose: 75 mg Ramipril (Altace -) 2.5 mg PO DAILY [facility] Last Admin: 10/19/18 10:47 Dose: 2.5 mg - Objective Vital Signs: Vital Signs Temperature 97.8 F 10/20/18 05:40 Pulse Rate 46 L 10/20/18 05:40 Respiratory Rate 18 10/20/18 05:40 Blood Pressure 149/73 10/20/18 05:40 O2 Sat by Pulse Oximetry (%) 97 10/20/18 02:00 Constitutional: Yes: Well Nourished Eyes: Yes: WNL Neurological: Yes: Alert, Oriented, Babinski negative ...Motor Strength: WNL Labs: CBC, BMP 10/19/18 07:20 10/19/18 07:20 INR, PTT INR Cancelled 10/18/18 17:23 Problem List - Problems (1) Left facial numbness Assessment/Plan: Questionable meningioma-induced paresthesia Rule out partial seizure 1. EEG 2. Aspirin 3. Neurosurgery consult Code(s): R20.0 - ANESTHESIA OF SKIN
--- NOTE | 2018-10-20 09:37 | CON.CARD ---
Consult Consult Specialty:: Cardiology Referred by:: Hospitalist Medicine Reason for Consultation:: Sinus bradycardia - History of Present Illness Chief Complaint: Left facial numbness History of Present Illness: 68yo woman c/o left facial upper extremity and lower extremity paresthesias as well as paresthesias around her lips which started when she woke up in the morning, associated with headache. She also c/o some left upper and lower extremity weakness. She denied any dysarthria, dysphagia, ataxia, visual, or hearing disturbances, chest pain, dyspnea, palpitations, orthopnea, PND or LE edema. She is found to be in sinus bradycardia 40s on telemetry. Denies near or true syncopal episodes but reported some fatigue with exertion. Brain MRI shows right parietal meningioma. - History Source History Provided By: Medical Record Limitations to Obtaining History: Language Barrier - Alcohol/Substance Use Hx Alcohol Use: No - Smoking History Smoking history: Never smoked Have you smoked in the past 12 months: No If you are a former smoker, when did you quit?: 25 years ago Home Medications - Allergies Allergies/Adverse Reactions: Allergies Allergy/AdvReac Type Severity Reaction Status Date / Time aspirin Allergy Verified 10/19/18 09:59 egg Allergy Verified 10/19/18 09:59 egg yolk Allergy Verified 10/19/18 09:59 - Home Medications Home Medications: Ambulatory Orders Celecoxib [CeleBREX -] 50 mg PO BID 04/05/16 Donepezil HCl [Aricept -] 10 mg PO DAILY 04/05/16 Escitalopram Oxalate [Lexapro -] 10 mg PO DAILY 04/05/16 Levothyroxine [Synthroid -] 50 mcg PO DAILY 04/05/16 Omeprazole Magnesium [Prilosec] 40 mg PO DAILY 04/05/16 Simvastatin [Zocor -] 40 mg PO HS 04/05/16 traZODone HCL [Trazodone HCl] 50 mg PO ASDIR 04/05/16 Ramipril [Altace] 2.5 mg PO DAILY #30 capsule 04/07/16 Acetaminophen/Caffeine/Butalb [Fioricet -] 1 tab PO Q6H PRN #12 tablet MDD 4 Butalb/Acetaminophen/Caffeine [Fioricet 50-300-40 mg Capsule] 1 each PO QID PRN #12 capsule 04/14/16 Pregabalin [Lyrica -] 75 mg PO TID #90 capsule MDD 3 06/09/18 Review of Systems - Review of Systems Neurological: reports: Numbness Vital Signs: Vital Signs Temperature 97.8 F 10/20/18 05:40 Pulse Rate 46 L 10/20/18 05:40 Respiratory Rate 18 10/20/18 05:40 Blood Pressure 149/73 10/20/18 05:40 O2 Sat by Pulse Oximetry (%) 97 10/20/18 02:00 Constitutional: Yes: No Distress, Calm Neck: Yes: Supple Respiratory: Yes: Regular, CTA Bilaterally Gastrointestinal: Yes: Normal Bowel Sounds, Soft Cardiovascular: Yes: Bradycardia JVD: No Carotid Bruit: No Heart Sounds: Yes: S1, S2 Murmur: Yes: Systolic Murmur, Grade 1 Edema: No - Other Data Labs, Other Data: CBC, BMP 10/19/18 07:20 10/19/18 07:20 INR, PTT INR Cancelled 10/18/18 17:23 ECG: SB @ 42 RBBB LVH Ejection Fraction %: LVEF > or = 40 % Imaging - Results Chest X-ray: Report Reviewed (NAD) Ultrasound: Report Reviewed (carotid US: No stenosis) MRI: Report Reviewed (Brain MRI Right parietal meningioma) Problem List - Problems (1) Elevated LFTs Code(s): R94.5 - ABNORMAL RESULTS OF LIVER FUNCTION STUDIES (2) Left face and left arm tingling Code(s): R20.2 - PARESTHESIA OF SKIN (3) Headache Code(s): R51 - HEADACHE Qualifiers: Headache type: tension-type Headache chronicity pattern: acute headache Intractability: not intractable Qualified Code(s): G44.209 - Tension-type headache, unspecified, not intractable (4) Hyperlipidemia Code(s): E78.5 - HYPERLIPIDEMIA, UNSPECIFIED Qualifiers: Hyperlipidemia type: pure hypercholesterolemia Qualified Code(s): E78.00 - Pure hypercholesterolemia, unspecified; E78.0 - Pure hypercholesterolemia (5) Hypertension Code(s): I10 - ESSENTIAL (PRIMARY) HYPERTENSION Qualifiers: Hypertension type: essential hypertension Qualified Code(s): I10 - Essential (primary) hypertension (6) Hypothyroidism Code(s): E03.9 - HYPOTHYROIDISM, UNSPECIFIED Qualifiers: Hypothyroidism type: unspecified Qualified Code(s): E03.9 - Hypothyroidism , unspecified (7) Sinus bradycardia Code(s): R00.1 - BRADYCARDIA, UNSPECIFIED Assessment/Plan 10/19/2018 Echo: Norml LV size and fxn, mild MR 1. Asymptomatic sinus bradycardia 2. Left facial numbness, meningioma vs partial seizure 3. Right parietal meningioma 4. Hypothyroidism 5. Hyperlipidemia 6. HTN heart disease 7. Abnl LFTs downtrending P:1. Avoid AV david agents, fasting lipid panel 2. Continue Altace 2.5 qd, Lipitor 40 qd, ASA 81 qd 3. NSG input, f/u EEG, holter monitor 4. No indication for PPM at this point, may pursue ETT to confirm chronotropic competency 5. Thank you for consultative opportunity
[2018-10-20] MEDS: ESCITALOPRAM OXALATE 10 MG TABLET (FP) PO SCH (09:51)
[2018-10-20] MEDS: PANTOPRAZOLE 40 MG TABLET (FP) PO SCH (09:51)
[2018-10-20] MEDS: HEPARIN NA (PORCINE) 5,000 UNITS/ML 1ML VIAL SQ SCH ×2 (09:51→21:21)
[2018-10-20] MEDS: RAMIPRIL 2.5 MG CAPSULE (FP) PO SCH (09:51)
--- NOTE | 2018-10-20 10:10 | PN ---
Progress Note (short form) - Note Progress Note: continues to have symptoms as well as perioral numbness. With dairy technologist seems pt been having these symptoms for 2 years however presented to the hospital yesterday because it was assoc iwth L hand tremor which was concerning. Current Medications Generic Name Dose Route Start Last Admin Trade Name Freq PRN Reason Stop Dose Admin Acetaminophen 650 mg 10/18/18 22:11 Tylenol - PO Q6H PRN HEADACHE Atorvastatin Calcium 40 mg 10/19/18 22:00 10/19/18 22:09 Lipitor - PO 40 mg HS J LUIS Administration Donepezil HCl 10 mg 10/19/18 22:00 10/19/18 22:09 Aricept - PO 10 mg HS J LUIS Administration Escitalopram Oxalate 10 mg 10/19/18 10:00 10/20/18 09:51 Lexapro - PO 10 mg DAILY J LUIS Administration Heparin Sodium (Porcine) 5,000 unit 10/18/18 22:00 10/20/18 09:51 Heparin - SQ 5,000 unit BID J LUIS Administration Levothyroxine Sodium 75 mcg 10/19/18 07:00 10/20/18 06:00 Synthroid - PO 75 mcg DAILY@0700 J LUIS Administration Pantoprazole Sodium 40 mg 10/19/18 10:00 10/20/18 09:51 Protonix - PO 40 mg DAILY J LUIS Administration Pregabalin 75 mg 10/18/18 22:00 10/20/18 05:59 Lyrica - PO 75 mg TID J LUIS Administration Ramipril 2.5 mg 10/19/18 10:00 10/20/18 09:51 Altace - PO 2.5 mg DAILY J LUIS Administration Last Vital Signs Temp Pulse Resp BP Pulse Ox 97.8 F 46 L 18 149/73 97 10/20/18 05:40 10/20/18 05:40 10/20/18 05:40 10/20/18 05:40 10/20/18 02:00 General NAD CV S1 S2 slow Lungs CTA B/L no wheezing/rales/rhonchi Abdomen soft NT/ND Extremities no pedal edema Neuro decreased sensation to whole L side of the face. LUE/LLE weakness CBCD WBC 7.2 K/mm3 (4.0-10.0) 10/19/18 07:20 RBC 4.49 M/mm3 (3.60-5.2) 10/19/18 07:20 Hgb 11.8 GM/dL (10.7-15.3) 10/19/18 07:20 Hct 36.8 % (32.4-45.2) 10/19/18 07:20 MCV 82.0 fl (80-96) 10/19/18 07:20 MCHC 32.0 g/dl (32.0-36.0) 10/19/18 07:20 RDW 14.3 % (11.6-15.6) 10/19/18 07:20 Plt Count 245 K/MM3 (134-434) 10/19/18 07:20 MPV 10.1 fl (7.5-11.1) 10/19/18 07:20 CMP Sodium 141 mmol/L (136-145) 10/19/18 07:20 Potassium 4.4 mmol/L (3.5-5.1) 10/19/18 07:20 Chloride 107 mmol/L (98-107) 10/19/18 07:20 Carbon Dioxide 28 mmol/L (21-32) 10/19/18 07:20 Anion Gap 6 MMOL/L (8-16) L 10/19/18 07:20 BUN 14 mg/dL (7-18) 10/19/18 07:20 Creatinine 0.8 mg/dL (0.55-1.3) 10/19/18 07:20 Creat Clearance w eGFR 71.76 (>60) 10/19/18 07:20 Calcium 8.9 mg/dL (8.5-10.1) 10/19/18 07:20 Total Bilirubin 0.4 mg/dL (0.2-1) 10/20/18 05:30 AST 57 U/L (15-37) H 10/20/18 05:30 ALT 68 U/L (13-61) H 10/20/18 05:30 Alkaline Phosphatase 172 U/L (45-117) H 10/20/18 05:30 Total Protein 6.9 g/dl (6.4-8.2) 10/20/18 05:30 Albumin 3.3 g/dl (3.4-5.0) L 10/20/18 05:30 A/P 68yo F with PMH hypothyroid and DM presented to the ER wtih L facial and side numbness and weakness which was accompanies with tremor of LUE, MRI done showing R parietal menigoma 5x4mm 1. R parietal menigoma- likely assoc iwth arm symptoms and now presenting with new onset seizure. Neurosurgery consulted and discussed. will get brain MRI with contrast to further delineate. spoke with patient and she is agreeable to surgery if necessary. cont frequent neurochecks. EEG to r/o seizure. 2. Sinus bradycardia- has hx of sinus bradycardia with RBBB. not symptomatic. no further worup at this time 3. Elevated LFT-remains stable. u/s showing fatty liver. on statin. 4. Hypothyroid- TSH WNL. cont LT4 5. DM- A1c 6.2. hold oral agents. bgm and iss 6. DVT ppx- hep sq 7. can d/c cardiac monitoring Visit type - Emergency Visit Emergency Visit: Yes ED Registration Date: 10/18/18 Care time: The patient presented to the Emergency Department on the above date and was hospitalized for further evaluation of their emergent condition. - New Patient This patient is new to me today: No - Critical Care Critical Care patient: No - Discharge Referral Referred to [facility] Med P.C.: No
[2018-10-20] MEDS: DONEPEZIL HCL 10 MG TABLET (FP) PO SCH (21:21)
[2018-10-20] MEDS: ATORVASTATIN CA 40 MG TABLET (FP) PO SCH (21:21)
[2018-10-21] MEDS: PREGABALIN 75 MG CAPSULE PO SCH ×3 (06:23→22:03)
[2018-10-21] MEDS: LEVOTHYROXINE NA 75 MCG TABLET (FP) PO SCH (06:23)
[2018-10-21 08:17] LABS: CHOLESTEROL 208 mg/dL (50-200); HDL CHOLESTEROL 45 mg/dL (40-60); TRIGLYCERIDES 149 mg/dL (0-150)
[2018-10-21] MEDS: ESCITALOPRAM OXALATE 10 MG TABLET (FP) PO SCH (09:30)
[2018-10-21] MEDS: RAMIPRIL 2.5 MG CAPSULE (FP) PO SCH (09:30)
[2018-10-21] MEDS: PANTOPRAZOLE 40 MG TABLET (FP) PO SCH (09:30)
[2018-10-21] MEDS: HEPARIN NA (PORCINE) 5,000 UNITS/ML 1ML VIAL SQ SCH ×2 (09:30→22:04)
--- NOTE | 2018-10-21 10:08 | PN ---
Physical Exam: SUBJECTIVE: Patient seen and examined she has no symptoms and her tele is unremarkable no fever or chills OBJECTIVE: Vital Signs Period Temp Pulse Resp BP Sys/Mitchell Pulse Ox Last 24 Hr 97.9 F-98.5 F 43-52 18-18 110-148/55-80 97-98 GENERAL: The patient is awake, alert, and fully oriented, in no acute distress. HEAD: Normal with no signs of trauma. EYES: PERRL, extraocular movements intact, sclera anicteric, conjunctiva clear. No ptosis. ENT: Ears normal, nares patent, oropharynx clear without exudates, moist mucous membranes. NECK: Trachea midline, full range of motion, supple. LUNGS: Breath sounds equal, clear to auscultation bilaterally, no wheezes, no crackles, no accessory muscle use. HEART: Regular rate and rhythm, S1, S2 without murmur, rub or gallop. ABDOMEN: Soft, nontender, nondistended, normoactive bowel sounds, no guarding, no rebound, no hepatosplenomegaly, no masses. EXTREMITIES: 2+ pulses, warm, well-perfused, no edema. NEUROLOGICAL: Cranial nerves II through XII grossly intact. Normal speech, gait not observed. PSYCH: Normal mood, normal affect. SKIN: Warm, dry, normal turgor, no rashes or lesions noted Laboratory Results - last 24 hr 10/21/18 05:30 Triglycerides 149 Cholesterol 208 H Total LDL Cholesterol 140 H HDL Cholesterol 45 Active Medications Generic Name Dose Route Start Last Admin Trade Name Freq PRN Reason Stop Dose Admin Acetaminophen 650 mg 10/18/18 22:11 Tylenol - PO Q6H PRN HEADACHE Atorvastatin Calcium 40 mg 10/19/18 22:00 10/20/18 21:21 Lipitor - PO 40 mg HS J LUIS Administration Donepezil HCl 10 mg 10/19/18 22:00 10/20/18 21:21 Aricept - PO 10 mg HS J LUIS Administration Escitalopram Oxalate 10 mg 10/19/18 10:00 10/21/18 09:30 Lexapro - PO 10 mg DAILY J LUIS Administration Heparin Sodium (Porcine) 5,000 unit 10/18/18 22:00 10/21/18 09:30 Heparin - SQ 5,000 unit BID J LUIS Administration Levothyroxine Sodium 75 mcg 10/19/18 07:00 10/21/18 06:23 Synthroid - PO 75 mcg DAILY@0700 J LUIS Administration Pantoprazole Sodium 40 mg 10/19/18 10:00 10/21/18 09:30 Protonix - PO 40 mg DAILY J LUIS Administration Pregabalin 75 mg 10/18/18 22:00 10/21/18 06:23 Lyrica - PO 75 mg TID J LUIS Administration Ramipril 2.5 mg 10/19/18 10:00 10/21/18 09:30 Altace - PO 2.5 mg DAILY J LUIS Administration ASSESSMENT/PLAN: 68yo F with PMH hypothyroid and DM presented to the ER wtih L facial and side numbness and weakness which was accompanies with tremor of LUE, MRI done showing R parietal menigoma 5x4mm 1. R parietal menigoma- likely assoc iwth arm symptoms and now presenting with new onset seizure. Neurosurgery consulted and discussed. will get brain MRI with contrast to further delineate. spoke with patient and she is agreeable to surgery if necessary. cont frequent neurochecks. EEG to r/o seizure. Pts holter is off and will go for mri of brain with contrast 2. Sinus bradycardia- has hx of sinus bradycardia with RBBB. not symptomatic. no further workup at this time seen by cardio 3. Elevated LFT-remains stable. u/s showing fatty liver. on statin. 4. Hypothyroid- TSH WNL. cont LT4 5. DM- A1c 6.2. hold oral agents. bgm and iss 6. DVT ppx- hep sq 7. can d/c cardiac monitoring Visit type - Emergency Visit Emergency Visit: Yes ED Registration Date: 10/20/18 Care time: The patient presented to the Emergency Department on the above date and was hospitalized for further evaluation of their emergent condition. - New Patient This patient is new to me today: Yes Date on this admission: 10/21/18 - Critical Care Critical Care patient: No - Discharge Referral Referred to [facility] Med P.C.: No
--- NOTE | 2018-10-21 10:12 | PN ---
Progress Note, Physician History of Present Illness: Remains in sinus bradycardia 40s on telemetry. Denies near or true syncopal episodes but reported some fatigue with exertion. Brain MRI shows right parietal meningioma, await contrast brain MRI. - Current Medication List Current Medications: Active Medications Acetaminophen (Tylenol -) 650 mg PO Q6H PRN PRN Reason: HEADACHE Atorvastatin Calcium (Lipitor -) 40 mg PO HS [facility] Last Admin: 10/20/18 21:21 Dose: 40 mg Donepezil HCl (Aricept -) 10 mg PO HS [facility] Last Admin: 10/20/18 21:21 Dose: 10 mg Escitalopram Oxalate (Lexapro -) 10 mg PO DAILY [facility] Last Admin: 10/21/18 09:30 Dose: 10 mg Heparin Sodium (Porcine) (Heparin -) 5,000 unit SQ BID [facility] Last Admin: 10/21/18 09:30 Dose: 5,000 unit Levothyroxine Sodium (Synthroid -) 75 mcg PO DAILY@0700 [facility] Last Admin: 10/21/18 06:23 Dose: 75 mcg Pantoprazole Sodium (Protonix -) 40 mg PO DAILY [facility] Last Admin: 10/21/18 09:30 Dose: 40 mg Pregabalin (Lyrica -) 75 mg PO TID [facility] Last Admin: 10/21/18 06:23 Dose: 75 mg Ramipril (Altace -) 2.5 mg PO DAILY [facility] Last Admin: 10/21/18 09:30 Dose: 2.5 mg - Objective Vital Signs: Vital Signs Temperature 98.2 F 10/21/18 08:58 Pulse Rate 52 L 10/21/18 08:58 Respiratory Rate 18 10/21/18 09:00 Blood Pressure 140/80 10/21/18 08:58 O2 Sat by Pulse Oximetry (%) 98 10/21/18 09:00 Constitutional: Yes: No Distress, Calm Neck: Yes: Supple Cardiovascular: Yes: Bradycardia Respiratory: Yes: Regular, CTA Bilaterally Gastrointestinal: Yes: Normal Bowel Sounds, Soft Edema: No Labs: CBC, BMP 10/19/18 07:20 10/19/18 07:20 INR, PTT INR Cancelled 10/18/18 17:23 Problem List - Problems (1) Elevated LFTs Code(s): R94.5 - ABNORMAL RESULTS OF LIVER FUNCTION STUDIES (2) Left face and left arm tingling Code(s): R20.2 - PARESTHESIA OF SKIN (3) Headache Code(s): R51 - HEADACHE Qualifiers: Headache type: tension-type Headache chronicity pattern: acute headache Intractability: not intractable Qualified Code(s): G44.209 - Tension-type headache, unspecified, not intractable (4) Hyperlipidemia Code(s): E78.5 - HYPERLIPIDEMIA, UNSPECIFIED Qualifiers: Hyperlipidemia type: pure hypercholesterolemia Qualified Code(s): E78.00 - Pure hypercholesterolemia, unspecified; E78.0 - Pure hypercholesterolemia (5) Hypertension Code(s): I10 - ESSENTIAL (PRIMARY) HYPERTENSION Qualifiers: Hypertension type: essential hypertension Qualified Code(s): I10 - Essential (primary) hypertension (6) Hypothyroidism Code(s): E03.9 - HYPOTHYROIDISM, UNSPECIFIED Qualifiers: Hypothyroidism type: unspecified Qualified Code(s): E03.9 - Hypothyroidism , unspecified (7) Sinus bradycardia Code(s): R00.1 - BRADYCARDIA, UNSPECIFIED Assessment/Plan 10/19/2018 Echo: Norml LV size and fxn, mild MR 1. Asymptomatic sinus bradycardia 2. Left facial numbness, meningioma vs partial seizure 3. Right parietal meningioma 4. Hypothyroidism 5. Hyperlipidemia 6. HTN heart disease 7. Abnl LFTs downtrending P:1. Avoid AV david agents 2. Continue Altace 2.5 qd, Lipitor 40 qd, ASA 81 qd 3. NSG input, f/u EEG, holter monitor, brain MRI with contrast 4. No indication for PPM at this point, may pursue ETT to confirm chronotropic competency 5. D/c telemetry
--- NOTE | 2018-10-21 21:22 | CONSULT ---
Consult - text type - Consultation Consultation Note: NEUROSURGERY CONSULTATION Danielle Nunez is a 68 year old Latin female who presented with episodes of Left hemibody numbness over her face, arm and leg. Upon further questioning, the patient relates multiple episodes over the past 2 years where she has numbness on the Left side of her body associated with weakness on the Left side at times as well as drooling and some twitching. She does not describe loss of consciousness or generalization of seizures, however, partial seizures cannot be excluded. Initial evaluation for stroke was negative, however, two small meningioma were identified. The larger of the two is 7mm and lies over the Right parietal convexity. There is no significant mass effect, although there may be cortical irritation from this lesion. On Neurological examination, she is intact and has no pronator drift and no extinction to double simultaneous stimulation. I explained to the patient that these lesions are small and typically would be followed with serial imaging. With the possibility that she is symptomatic from the parietal convexity lesion, stereotactic resection via a small Right parietal craniotomy might represent an option in her care. I stressed that surgery was not mandatory and that surgery was not assured to relieve her from these episodes/seizures. I discussed the case with the patient and her daughter in great detail. I explained that the risks, benefits and alternatives to Image guided (stereotactic) Right parietal craniotomy and microsurgical resection of the convexity meningioma in great detail. I explaind that the risks included, but were not limited to: , coma, paralysis, bleeding, infection, difficulty finding the lesion, inability to completely remove the lesion, difficulty in establishing a tissue diagnosis and the possibility that her troublesome symptoms would not darien. I offered them the option of seeking another opinion or another surgeon. All questions were answered. Informed consent was obtained. I spoke with them prior to the MRI with contrast, and they asked that I make preparations to proceed with surgery on Tuesday with the understanding that we would review her case and potential treatment options after the MRI, prior to proceeding. Both the patient and her daughter verbalized an understanding of this information and asked intelligent questions. I plan to review the case with the two of them on Tuesday and again stress that surgery represents an option, however, it is not mandatory and that serial imaging may represent a reasonable treatment option. Per their requests, I have made preparations for surgery on Tuesday in the event that they still are strongly in favor of proceeding.
[2018-10-21] MEDS: DONEPEZIL HCL 10 MG TABLET (FP) PO SCH (22:03)
[2018-10-21] MEDS: ATORVASTATIN CA 40 MG TABLET (FP) PO SCH (22:04)
[2018-10-22] MEDS: PREGABALIN 75 MG CAPSULE PO SCH ×3 (06:22→21:35)
[2018-10-22] MEDS: LEVOTHYROXINE NA 75 MCG TABLET (FP) PO SCH (06:22)
[2018-10-22] MEDS: PANTOPRAZOLE 40 MG TABLET (FP) PO SCH (09:44)
[2018-10-22] MEDS: RAMIPRIL 2.5 MG CAPSULE (FP) PO SCH (09:44)
[2018-10-22] MEDS: HEPARIN NA (PORCINE) 5,000 UNITS/ML 1ML VIAL SQ SCH ×2 (09:44→21:35)
[2018-10-22] MEDS: ESCITALOPRAM OXALATE 10 MG TABLET (FP) PO SCH (09:44)
--- NOTE | 2018-10-22 11:19 | PN ---
Progress Note, Physician History of Present Illness: Remains in sinus bradycardia 40s on telemetry. Denies near or true syncopal episodes but reported some fatigue with exertion. Brain MRI with contrast confirms small right parietal meningioma. Reports BRAGG and left facial tingling. - Current Medication List Current Medications: Active Medications Acetaminophen (Tylenol -) 650 mg PO Q6H PRN PRN Reason: HEADACHE Atorvastatin Calcium (Lipitor -) 40 mg PO HS [facility] Last Admin: 10/21/18 22:04 Dose: 40 mg Donepezil HCl (Aricept -) 10 mg PO HS [facility] Last Admin: 10/21/18 22:03 Dose: 10 mg Escitalopram Oxalate (Lexapro -) 10 mg PO DAILY [facility] Last Admin: 10/22/18 09:44 Dose: 10 mg Heparin Sodium (Porcine) (Heparin -) 5,000 unit SQ BID [facility] Last Admin: 10/22/18 09:44 Dose: 5,000 unit Levothyroxine Sodium (Synthroid -) 75 mcg PO DAILY@0700 [facility] Last Admin: 10/22/18 06:22 Dose: 75 mcg Pantoprazole Sodium (Protonix -) 40 mg PO DAILY [facility] Last Admin: 10/22/18 09:44 Dose: 40 mg Pregabalin (Lyrica -) 75 mg PO TID [facility] Last Admin: 10/22/18 06:22 Dose: 75 mg Ramipril (Altace -) 2.5 mg PO DAILY [facility] Last Admin: 10/22/18 09:44 Dose: 2.5 mg - Objective Vital Signs: Vital Signs Temperature 97.8 F 10/22/18 08:13 Pulse Rate 49 L 10/22/18 08:13 Respiratory Rate 20 10/22/18 08:15 Blood Pressure 132/66 10/22/18 08:13 O2 Sat by Pulse Oximetry (%) 100 10/22/18 08:15 Constitutional: Yes: No Distress, Calm Neck: Yes: Supple Cardiovascular: Yes: Regular Rate and Rhythm Respiratory: Yes: Regular, Diminished Gastrointestinal: Yes: Normal Bowel Sounds, Soft Edema: No Labs: CBC, BMP 10/19/18 07:20 10/19/18 07:20 INR, PTT INR Cancelled 10/18/18 17:23 Problem List - Problems (1) Elevated LFTs Code(s): R94.5 - ABNORMAL RESULTS OF LIVER FUNCTION STUDIES (2) Left face and left arm tingling Code(s): R20.2 - PARESTHESIA OF SKIN (3) Headache Code(s): R51 - HEADACHE Qualifiers: Headache type: tension-type Headache chronicity pattern: acute headache Intractability: not intractable Qualified Code(s): G44.209 - Tension-type headache, unspecified, not intractable (4) Hyperlipidemia Code(s): E78.5 - HYPERLIPIDEMIA, UNSPECIFIED Qualifiers: Hyperlipidemia type: pure hypercholesterolemia Qualified Code(s): E78.00 - Pure hypercholesterolemia, unspecified; E78.0 - Pure hypercholesterolemia (5) Hypertension Code(s): I10 - ESSENTIAL (PRIMARY) HYPERTENSION Qualifiers: Hypertension type: essential hypertension Qualified Code(s): I10 - Essential (primary) hypertension (6) Hypothyroidism Code(s): E03.9 - HYPOTHYROIDISM, UNSPECIFIED Qualifiers: Hypothyroidism type: unspecified Qualified Code(s): E03.9 - Hypothyroidism , unspecified (7) Sinus bradycardia Code(s): R00.1 - BRADYCARDIA, UNSPECIFIED Assessment/Plan 10/19/2018 Echo: Norml LV size and fxn, mild MR 1. Asymptomatic sinus bradycardia 2. Left facial numbness, meningioma vs partial seizure 3. Right parietal meningioma 4. Hypothyroidism 5. Hyperlipidemia 6. HTN heart disease 7. Abnl LFTs downtrending P:1. Avoid AV david agents 2. Continue Altace 2.5 qd, Lipitor 40 qd, ASA 81 qd 3. NSG input noted, f/u EEG, holter monitor 4. No indication for PPM at this point, may pursue ETT to confirm chronotropic competency 5. D/c telemetry
--- NOTE | 2018-10-22 17:04 | PN ---
Physical Exam: SUBJECTIVE: Patient seen and examined pt has no new c/o OBJECTIVE: Vital Signs Period Temp Pulse Resp BP Sys/Mitchell Pulse Ox Last 24 Hr 97.8 F-98.8 F 48-52 18-20 132-143/60-81 100-100 GENERAL: The patient is awake, alert, and fully oriented, in no acute distress. HEAD: Normal with no signs of trauma. EYES: PERRL, extraocular movements intact, sclera anicteric, conjunctiva clear. No ptosis. ENT: Ears normal, nares patent, oropharynx clear without exudates, moist mucous membranes. NECK: Trachea midline, full range of motion, supple. LUNGS: Breath sounds equal, clear to auscultation bilaterally, no wheezes, no crackles, no accessory muscle use. HEART: Regular rate and rhythm, S1, S2 without murmur, rub or gallop. ABDOMEN: Soft, nontender, nondistended, normoactive bowel sounds, no guarding, no rebound, no hepatosplenomegaly, no masses. EXTREMITIES: 2+ pulses, warm, well-perfused, no edema. NEUROLOGICAL: Cranial nerves II through XII grossly intact. Normal speech, gait not observed. PSYCH: Normal mood, normal affect. SKIN: Warm, dry, normal turgor, no rashes or lesions noted Laboratory Results - last 24 hr 10/20/18 05:30 YONAS Screen Negative Active Medications Generic Name Dose Route Start Last Admin Trade Name Freq PRN Reason Stop Dose Admin Acetaminophen 650 mg 10/18/18 22:11 Tylenol - PO Q6H PRN HEADACHE Atorvastatin Calcium 40 mg 10/19/18 22:00 10/21/18 22:04 Lipitor - PO 40 mg HS J LUIS Administration Donepezil HCl 10 mg 10/19/18 22:00 10/21/18 22:03 Aricept - PO 10 mg HS J LUIS Administration Escitalopram Oxalate 10 mg 10/19/18 10:00 10/22/18 09:44 Lexapro - PO 10 mg DAILY J LUIS Administration Heparin Sodium (Porcine) 5,000 unit 10/18/18 22:00 10/22/18 09:44 Heparin - SQ 5,000 unit BID J LUIS Administration Levothyroxine Sodium 75 mcg 10/19/18 07:00 10/22/18 06:22 Synthroid - PO 75 mcg DAILY@0700 J LUIS Administration Pantoprazole Sodium 40 mg 10/19/18 10:00 10/22/18 09:44 Protonix - PO 40 mg DAILY J LUIS Administration Pregabalin 75 mg 10/18/18 22:00 10/22/18 13:48 Lyrica - PO 75 mg TID J LUIS Administration Ramipril 2.5 mg 10/19/18 10:00 10/22/18 09:44 Altace - PO 2.5 mg DAILY J LUIS Administration ASSESSMENT/PLAN: 68yo F with PMH hypothyroid and DM presented to the ER wtih L facial and side numbness and weakness which was accompanies with tremor of LUE, MRI done showing R parietal menigoma 5x4mm 1. R parietal menigoma- her MRI with contrast no new finding except maningioma d/w with daughter and she is thinking about the surgery. explained her to think again bc it is not necessary, dW neurosurgery and he will talk to family again am before surgery 2. Sinus bradycardia- has hx of sinus bradycardia with RBBB. not symptomatic. no further workup at this time seen by cardio 3. Elevated LFT-remains stable. u/s showing fatty liver. on statin. 4. Hypothyroid- TSH WNL. cont LT4 5. DM- A1c 6.2. hold oral agents. bgm Visit type - Emergency Visit Emergency Visit: Yes ED Registration Date: 10/20/18 Care time: The patient presented to the Emergency Department on the above date and was hospitalized for further evaluation of their emergent condition. - New Patient This patient is new to me today: No - Critical Care Critical Care patient: No - Discharge Referral Referred to [facility] Med P.C.: No
--- NOTE | 2018-10-22 20:25 | PN ---
Progress Note (short form) - Note Progress Note: I had an extensive discussion with the patient and daughter about her current condition and the various treatment options available at this time. I again stressed that surgical intervention is not typically a first line treatment for a 7mm lesion and that if this were determined to be completely asymptomatic, surgery would have little role. I explained that if this lesion is symptomatic in that it is causing Left facial numbness and partial seizures due to cortical irritation, management with observation and anticonvulsants may still be a good option. I explained that if this lesion was causing these symptoms/seizures, stereotactic resection might represent a potential treatment option, however, I indicated clearly and repeatedly that it was not mandatory. 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 She expresses frustration that her facial paresthesias and seizure like activity have not been addressed over the past two years despite her seeking medical attention for these symptoms which are very troubling to her. In light of her knowing that I was not advocating surgery as a first line treatment, she persisted in stating that her preference, in light of her medical history, was to have the lesion removed. I emphasized that although surgical resection was relatively straightforward, I would not push her towards surgery and would only consider proceeding since she is indicating a strong personal desire to do so. I told them several times that this may not resolve her seizures/symptoms and that the risks, although relative low in likelihood, must be considered seriously since they could potentially result in permanent morbidity or even mortality. After listening carefully to all of this information, they still asked that I proceed. Subsequent to our discussion, Dr. Peterson had a discussion with them and he informed me that from his discussion, they expressed a desire to once again speak with me since they may now agree to a conservative approach. Prior to proceeding with any surgical intervention, I plan to again speak with them.
[2018-10-22] MEDS: ATORVASTATIN CA 40 MG TABLET (FP) PO SCH (21:35)
[2018-10-22] MEDS: DONEPEZIL HCL 10 MG TABLET (FP) PO SCH (21:35)
[2018-10-23] MEDS: LEVOTHYROXINE NA 75 MCG TABLET (FP) PO SCH (06:09)
[2018-10-23] MEDS: PREGABALIN 75 MG CAPSULE PO SCH ×3 (06:09→22:20)
[2018-10-23] MEDS ORDERED: ONDANSETRON 4 MG/2 ML VIAL IVPUSH PRN ×2 (08:11→13:52)
[2018-10-23] MEDS ORDERED: LACTATED RINGERS SOLUTION 1,000 ML IV SCH (08:15)
--- NOTE | 2018-10-23 09:07 | PN ---
Physical Exam: SUBJECTIVE: Patient seen and examined. She has no complaints. She would like to proceed with resection of the meningioma. OBJECTIVE: Vital Signs Period Temp Pulse Resp BP Sys/Mitchell Pulse Ox Last 24 Hr 97.5 F-98.8 F 45-51 18-20 130-147/60-77 97-97 GENERAL: The patient is awake, alert, and fully oriented, in no acute distress. LUNGS: Breath sounds equal, clear to auscultation bilaterally, no wheezes, no crackles, no accessory muscle use. HEART: Regular rhythm, bradycardic, S1, S2 without murmur, rub or gallop. ABDOMEN: Soft, nontender, nondistended, normoactive bowel sounds, no guarding, no rebound, no hepatosplenomegaly, no masses. EXTREMITIES: 2+ pulses, warm, well-perfused, no edema. Active Medications Generic Name Dose Route Start Last Admin Trade Name Freq PRN Reason Stop Dose Admin Acetaminophen 650 mg 10/18/18 22:11 Tylenol - PO Q6H PRN HEADACHE Atorvastatin Calcium 40 mg 10/19/18 22:00 10/22/18 21:35 Lipitor - PO 40 mg HS J LUIS Administration Donepezil HCl 10 mg 10/19/18 22:00 10/22/18 21:35 Aricept - PO 10 mg HS J [facility] Administration Escitalopram Oxalate 10 mg 10/19/18 10:00 10/22/18 09:44 Lexapro - PO 10 mg DAILY J [facility] Administration Fentanyl 50 mcg 10/23/18 08:11 Sublimaze Injection - IVPUSH [id number] PRN PAIN-PACU ORDER X 4 DOSES ONLY Heparin Sodium (Porcine) 5,000 unit 10/18/18 22:00 10/22/18 21:35 Heparin - SQ 5,000 unit BID J [facility] Administration Lactated Ringer's 1,000 mls @ 75 mls/hr 10/23/18 08:15 Lactated Ringers Solution IV ASDIR J [facility]IS Levothyroxine Sodium 75 mcg 10/19/18 07:00 10/23/18 06:09 Synthroid - PO 75 mcg DAILY@0700 J [facility] Administration Ondansetron HCl 4 mg 10/23/18 08:11 Zofran Injection IVPUSH Q6H PRN NAUSEA AND/OR VOMITING Pantoprazole Sodium 40 mg 10/19/18 10:00 10/22/18 09:44 Protonix - PO 40 mg DAILY J [facility] Administration Pregabalin 75 mg 10/18/18 22:00 10/23/18 06:09 Lyrica - PO 75 mg TID J [facility] Administration Ramipril 2.5 mg 10/19/18 10:00 10/22/18 09:44 Altace - PO 2.5 mg DAILY J LUIS Administration ASSESSMENT/PLAN: This is a 68 year old woman with a history of HTN, hyperlipidemia, bradycardia, hypothyroidism, type 2 DM who presented to the ED with left facial numbness, left sided numbness and weakness, and left arm tremor. 1. Seizure secondary to right parietal meningioma - Discussed with Dr. Daugherty and with patient and her family - Patient would like to proceed with surgery 2. Sinus bradycardia, asymptomatic 3. Hepatic transaminitis - RUQ US shows mild fatty infiltration vs hepatocellular disease - ? secondary to statin use - Monitor LFTs 4. Hypothyroidism secondary to thyroidectomy - Continue Synthroid 5. Type 2 DM - On no medication - Fingersticks with Novolog sliding scale 6. HTN - Continue Altace 7. Hyperlipidemia - Continue Lipitor - Monitor LFTs Visit type - Emergency Visit Emergency Visit: Yes ED Registration Date: 10/20/18 Care time: The patient presented to the Emergency Department on the above date and was hospitalized for further evaluation of their emergent condition. - New Patient This patient is new to me today: Yes Date on this admission: 10/23/18 - Critical Care Critical Care patient: No - Discharge Referral Referred to [facility] Med P.C.: No
[2018-10-23] MEDS ORDERED: GENTAMICIN SO4 80 MG/2 ML VIAL ONE (10:18)
[2018-10-23] MEDS ORDERED: LIDOCAINE 1%-EPI 1:100,000 30 ML MDV IJ ONE (10:19)
[2018-10-23] MEDS ORDERED: THROMBIN (BOVINE) 20,000 UNIT VIAL TP ONE (10:19)
[2018-10-23] MEDS: RAMIPRIL 2.5 MG CAPSULE (FP) PO SCH (10:20)
[2018-10-23] MEDS: PANTOPRAZOLE 40 MG TABLET (FP) PO SCH (10:20)
[2018-10-23] MEDS: ESCITALOPRAM OXALATE 10 MG TABLET (FP) PO SCH (10:20)
[2018-10-23] MEDS: HEPARIN NA (PORCINE) 5,000 UNITS/ML 1ML VIAL SQ SCH (10:21)
[2018-10-23] MEDS ORDERED: MIDAZOLAM HCL 2 MG/2 ML SINGLE DOSE VIAL ONE (10:27)
[2018-10-23] MEDS ORDERED: PROPOFOL 20 ML ONE (10:28)
[2018-10-23] MEDS ORDERED: DEXAMETHASONE SOD PHOSPHATE 4 MG/1 ML VIAL ONE (10:28)
[2018-10-23] MEDS ORDERED: LIDOCAINE HCL/PF 2% SDV 5ML VIAL ONE (10:28)
--- NOTE | 2018-10-23 10:37 | PN ---
Progress Note, Physician History of Present Illness: Denies near or true syncopal episodes. Brain MRI with contrast confirms small right parietal meningioma. Reports BRAGG and left facial tingling. - Current Medication List Current Medications: Active Medications Acetaminophen (Tylenol -) 650 mg PO Q6H PRN PRN Reason: HEADACHE Atorvastatin Calcium (Lipitor -) 40 mg PO HS [facility] Last Admin: 10/22/18 21:35 Dose: 40 mg Donepezil HCl (Aricept -) 10 mg PO HS [facility] Last Admin: 10/22/18 21:35 Dose: 10 mg Escitalopram Oxalate (Lexapro -) 10 mg PO DAILY [facility] Last Admin: 10/23/18 10:20 Dose: 10 mg Fentanyl (Sublimaze Injection -) 50 mcg IVPUSH [id number] PRN PRN Reason: PAIN-PACU ORDER X 4 DOSES ONLY Heparin Sodium (Porcine) (Heparin -) 5,000 unit SQ BID [facility] Last Admin: 10/23/18 10:21 Dose: Not Given Lactated Ringer's (Lactated Ringers Solution) 1,000 mls @ 75 mls/hr IV ASDIR [facility] Levothyroxine Sodium (Synthroid -) 75 mcg PO DAILY@0700 [facility] Last Admin: 10/23/18 06:09 Dose: 75 mcg Ondansetron HCl (Zofran Injection) 4 mg IVPUSH Q6H PRN PRN Reason: NAUSEA AND/OR VOMITING Pantoprazole Sodium (Protonix -) 40 mg PO DAILY [facility] Last Admin: 10/23/18 10:20 Dose: 40 mg Pregabalin (Lyrica -) 75 mg PO TID [facility] Last Admin: 10/23/18 06:09 Dose: 75 mg Ramipril (Altace -) 2.5 mg PO DAILY [facility] Last Admin: 10/23/18 10:20 Dose: 2.5 mg - Objective Vital Signs: Vital Signs Temperature 98 F 10/23/18 10:00 Pulse Rate 45 L 10/23/18 10:00 Respiratory Rate 20 10/23/18 10:00 Blood Pressure 143/82 10/23/18 10:00 O2 Sat by Pulse Oximetry (%) 97 10/22/18 20:55 Constitutional: Yes: No Distress, Calm Neck: Yes: Supple Cardiovascular: Yes: Regular Rate and Rhythm Respiratory: Yes: Regular, CTA Bilaterally Gastrointestinal: Yes: Normal Bowel Sounds, Soft Edema: No Labs: CBC, BMP 10/19/18 07:20 10/19/18 07:20 INR, PTT INR Cancelled 10/18/18 17:23 Problem List - Problems (1) Elevated LFTs Code(s): R94.5 - ABNORMAL RESULTS OF LIVER FUNCTION STUDIES (2) Left face and left arm tingling Code(s): R20.2 - PARESTHESIA OF SKIN (3) Headache Code(s): R51 - HEADACHE Qualifiers: Headache type: tension-type Headache chronicity pattern: acute headache Intractability: not intractable Qualified Code(s): G44.209 - Tension-type headache, unspecified, not intractable (4) Hyperlipidemia Code(s): E78.5 - HYPERLIPIDEMIA, UNSPECIFIED Qualifiers: Hyperlipidemia type: pure hypercholesterolemia Qualified Code(s): E78.00 - Pure hypercholesterolemia, unspecified; E78.0 - Pure hypercholesterolemia (5) Hypertension Code(s): I10 - ESSENTIAL (PRIMARY) HYPERTENSION Qualifiers: Hypertension type: essential hypertension Qualified Code(s): I10 - Essential (primary) hypertension (6) Hypothyroidism Code(s): E03.9 - HYPOTHYROIDISM, UNSPECIFIED Qualifiers: Hypothyroidism type: unspecified Qualified Code(s): E03.9 - Hypothyroidism , unspecified (7) Sinus bradycardia Code(s): R00.1 - BRADYCARDIA, UNSPECIFIED (8) Meningioma Code(s): D32.9 - BENIGN NEOPLASM OF MENINGES, UNSPECIFIED Assessment/Plan 10/19/2018 Echo: Norml LV size and fxn, mild MR 1. Asymptomatic sinus bradycardia 2. Left facial numbness, rt parietal meningioma vs partial seizure 3. Right parietal meningioma 4. Hypothyroidism 5. Hyperlipidemia 6. HTN heart disease 7. Abnl LFTs downtrending P:1. Avoid AV david agents 2. Continue Altace 2.5 qd, Lipitor 40 qd, ASA 81 qd 3. NSG input noted, f/u EEG, holter monitor 4. No indication for PPM at this point, may pursue ETT to confirm chronotropic competency 5. D/c telemetry
[2018-10-23] MEDS ORDERED: BACITRACIN 15 GM TUBE TOPICAL OINTMENT ONE (10:47)
--- NOTE | 2018-10-23 11:09 | HOL ---
Hook-up date: 2018-10-20 08:40:00 Duration: 24:00:00 Test Indications: NEAR SYNCOPY Medications: 06277 QRS complexes 1 Ventricular ectopics which represent <1 % of total QRS comp. 61 Supraventricular ectopics which represent <1 % of total QRS comp. * Paced QRS complexs which represent % of total QRS comp. 3 % of Time Classified as Noise VENTRICULAR ECTOPY 1 Isolated 0 Bigeminal Cycles 0 Couplets 0 Runs 0 Beats in Runs * Beats LONGEST at * BPM at :: -- * Beats FASTEST at * BPM at :: -- SUPRAVENTRICULAR ECTOPY 49 Isolated 2 Couplets 2 Runs 8 Beats in Runs 5 Beats LONGEST at 92 BPM at 22:43:50 2018-10-20 5 Beats FASTEST at 92 BPM at 22:43:50 2018-10-20 HEART RATES 37 MIN at 10:26:42 2018-10-20 47 AVG 67 MAX at 14:20:28 2018-10-20 LONGEST RR 2.912 secs at 10:26:38 2018-10-20 SCANNED BY: SEBASTIAN 10/21/18 1. BASELINE RHYTHM IS SINUS RHYTHM WITH AVERAGE HR OF 47 BPM. RATES VARIED FROM 37 BPM TO 67 BPM. LONGEST PAUSE WAS 2.9 SEC. 2. RARE VENTRICULAR ECTOPY (1 PVC) 3. OCCASIONAL ATRIAL ECTOPIES INCLUDING 49 APCS, 2 COUPLETS AND 2 RUNS OF NSSVT, LONGEST [address]IFIC[address]-T VARIATIONS 5. DIARY WAS NOT SUBMITTED Confirmed by SABINO COX, MALCOLM ([id number]) on 10/23/2018 11:08:59 AM Referred By: Samara FERNANDEZ Overread By: MALCOLM GALLO MD
[2018-10-23] MEDS ORDERED: NEOSTIGMINE METHYLSULFATE 0.5 MG/ML - 10 ML MDV ONE (11:38)
[2018-10-23] MEDS ORDERED: GLYCOPYRROLATE 0.2 MG/1 ML VIAL ONE (11:38)
[2018-10-23] MEDS ORDERED: ROCURONIUM BROMIDE 50 MG/5 ML VIAL ONE (11:41)
[2018-10-23] MEDS ORDERED: ePHEDrine SULFATE 50 MG/1 ML AMPULE ONE ×2 (11:47)
[2018-10-23] MEDS ORDERED: SODIUM CHLORIDE 0.9% P/F 10 ML VIAL IJ ONE (11:48)
[2018-10-23] MEDS ORDERED: ceFAZolin SODIUM 1 GM VIAL ONE (11:48)
[2018-10-23] MEDS ORDERED: VANCOMYCIN 1,000 MG VIAL (RESTRICTED TO ID ONLY) ONE (11:50)
[2018-10-23] MEDS ORDERED: ceFAZolin SODIUM 1 GM VIAL IVPB ONE (11:54)
[2018-10-23] MEDS ORDERED: VANCOMYCIN 1,000 MG VIAL (RESTRICTED TO ID ONLY) IVPB ONE (11:56)
[2018-10-23] MEDS ORDERED: GELATIN SPONGE,ABSORBABLE 1 GM PACKET TP ONE (11:58)
[2018-10-23] MEDS ORDERED: BACITRACIN 50,000 UNITS VIAL TP ONE (11:59)
[2018-10-23] MEDS ORDERED: GENTAMICIN 80MG PREMIX BAG IVPB ONE (11:59)
[2018-10-23] MEDS ORDERED: HYDROGEN PEROXIDE 473 ML PO ONE (12:00)
[2018-10-23] MEDS ORDERED: LIDOCAINE 1%/EPI 1:100000 (20 ML MULTI DOSE VIAL) IJ ONE ×2 (12:02)
--- NOTE | 2018-10-23 13:17 | OP ---
Operative Note - Note: Operative Date: 10/23/18 Pre-Operative Diagnosis: Meningioma Operation: Right parietal craniotomy with removal of meningioma Findings: Meningioma adhered to dura Post-Operative Diagnosis: Same as Pre-op Surgeon: Leandro Daugherty Mud Mixer: Puma Thompson Anesthesiologist/PRESS TENDER SMOKE SIGNAL: David Diaz Anesthesia: General Specimens Removed: Portion of dura and meningioma Estimated Blood Loss (mls): 20 Drains, Volume Out (mls): 100 (salcedo) Fluid Volume Replaced (mls): 500 Operative Report Dictated: Yes
[2018-10-23] MEDS: LACTATED RINGERS SOLUTION 1,000 ML IV SCH ×2 (21:30→22:23)
[2018-10-23] MEDS ORDERED: HEPARIN NA (PORCINE) 5,000 UNITS/ML 1ML VIAL SQ SCH (22:00)
[2018-10-23] MEDS: INSULIN SLIDING SCALE (NOVOLOG) 1 VIAL SQ SCH (22:05)
[2018-10-23] MEDS ORDERED: morphine SULFATE 4 MG/ML VIAL IVPUSH ONE (22:11)
--- NOTE | 2018-10-23 22:20 | CONSULT ---
Consultation: REQUESTING PROVIDER: Dr. Chisholm CONSULT REQUEST: We have been asked to medically evaluate this patient for post op. HISTORY OF PRESENT ILLNESS: This is a 68 year old female with a history of sinus bradycardia, hypothyroidism , HLD, HTN, dementia, TIA, who presents with chronic left face/arm/leg weakness sent from doctors office with bradycardia, found to have right parietal meningioma, admitted to ICU post op resection. Patient aaox3. Complains of severe headache. Denies blurry vision, worst headache of her life, chest pain, shortness of breath. Left sided face/weakness / and decreased sensation unchanged from preop. VS: HR 60; BP 124/96; O2 100% on 2L NC. PMH: HTN, HLD, NIDDM, GERD, NIDDM, TIA, GERD, osteoarthritis, osteoporosis, hypothyroidism s/p thyroidectomy; uterine CA; vaginal wall CA PSH; hysterectomy Social hx; denies smoking/alcohol/drug use REVIEW OF SYSTEMS: CONSTITUTIONAL: Absent: fever, chills, diaphoresis, generalized weakness, malaise, loss of appetite, weight change HEENT: Absent: rhinorrhea, nasal congestion, throat pain, throat swelling, difficulty swallowing, mouth swelling, ear pain, eye pain, visual changes CARDIOVASCULAR: Absent: chest pain, syncope, palpitations, irregular heart rate, lightheadedness , peripheral edema RESPIRATORY: Absent: cough, shortness of breath, dyspnea with exertion, orthopnea, wheezing, stridor, hemoptysis GASTROINTESTINAL: Absent: abdominal pain, abdominal distension, nausea, vomiting, diarrhea, constipation, melena, hematochezia GENITOURINARY: Absent: dysuria, frequency, urgency, hesitancy, hematuria, flank pain, genital pain MUSCULOSKELETAL: Absent: myalgia, arthralgia, joint swelling, back pain, neck pain SKIN: Absent: rash, itching, pallor HEMATOLOGIC/IMMUNOLOGIC: Absent: easy bleeding, easy bruising, lymphadenopathy, frequent infections ENDOCRINE: Absent: unexplained weight gain, unexplained weight loss, heat intolerance, cold intolerance NEUROLOGIC: Positive: chronic left sided arm/leg weakness; decreased sensation of the left side of face; Absent: headache, focal weakness or paresthesias, dizziness, unsteady gait, seizure, mental status changes, bladder or bowel incontinence PSYCHIATRIC: Absent: anxiety, depression, suicidal or homicidal ideation, hallucinations. PHYSICAL EXAMINATION Vital Signs - 24 hr 10/23/18 10/23/18 10/23/18 02:00 05:50 09:00 Temperature 98.1 F 97.5 F L Pulse Rate 48 L 45 L Respiratory 20 18 20 Rate Blood Pressure 145/73 147/73 O2 Sat by Pulse 100 Oximetry (%) 10/23/18 10/23/18 10/23/18 10:00 13:33 13:45 Temperature 98 F 98.0 F Pulse Rate 45 L 87 80 Respiratory 20 17 15 Rate Blood Pressure 143/82 144/62 128/57 L O2 Sat by Pulse 100 97 97 Oximetry (%) 10/23/18 10/23/18 10/23/18 14:00 14:15 14:30 Temperature Pulse Rate 82 87 78 Respiratory 15 17 13 Rate Blood Pressure 130/53 L 122/45 L 117/65 O2 Sat by Pulse 99 98 98 Oximetry (%) 10/23/18 10/23/18 10/23/18 14:45 15:00 15:15 Temperature Pulse Rate 77 78 78 Respiratory 12 16 14 Rate Blood Pressure 122/56 L 118/56 L 116/67 O2 Sat by Pulse 98 98 98 Oximetry (%) 10/23/18 10/23/18 10/23/18 15:30 15:45 16:00 Temperature Pulse Rate 78 78 74 Respiratory 15 16 15 Rate Blood Pressure 120/68 123/62 128/64 O2 Sat by Pulse 98 98 98 Oximetry (%) 10/23/18 10/23/18 10/23/18 16:15 16:30 16:45 Temperature Pulse Rate 77 77 76 Respiratory 17 17 14 Rate Blood Pressure 137/60 138/63 133/69 O2 Sat by Pulse 98 98 97 Oximetry (%) 10/23/18 10/23/18 10/23/18 17:00 17:15 17:30 Temperature Pulse Rate 73 78 80 Respiratory 16 16 16 Rate Blood Pressure 136/66 126/68 136/66 O2 Sat by Pulse 98 98 96 Oximetry (%) 10/23/18 10/23/18 10/23/18 18:00 18:30 19:00 Temperature Pulse Rate 68 66 60 Respiratory 17 15 18 Rate Blood Pressure 128/63 125/68 129/67 O2 Sat by Pulse 98 98 97 Oximetry (%) 10/23/18 10/23/18 10/23/18 19:30 20:00 20:30 Temperature Pulse Rate 62 63 60 Respiratory 15 18 16 Rate Blood Pressure 143/63 129/67 133/66 O2 Sat by Pulse 98 97 97 Oximetry (%) 10/23/18 10/23/18 21:00 21:30 Temperature 98.8 F Pulse Rate 64 76 Respiratory 19 16 Rate Blood Pressure 140/70 132/66 O2 Sat by Pulse 98 Oximetry (%) GENERAL: Awake, alert, and fully oriented, in no acute distress. HEAD: Normal with no signs of trauma; with head dressing; clean dry/ intact EYES: Pupils equal, round and reactive to light, extraocular movements intact, sclera anicteric, conjunctiva clear. No lid lag. THROAToropharynx clear without exudates. Moist mucous membranes. NECK: Normal range of motion, supple without lymphadenopathy, JVD, or masses. LUNGS: Breath sounds equal, clear to auscultation bilaterally. No wheezes, and no crackles. No accessory muscle use. HEART: Regular rate and rhythm, normal S1 and S2 without murmur, rub or gallop. ABDOMEN: Soft, nontender, not distended, normoactive bowel sounds, no guarding, no rebound, no masses. No hepatomegaly or splenomegaly. UPPER EXTREMITIES: 2+ pulses, warm, well-perfused. No cyanosis. No clubbing. Cap refill <2 seconds. No peripheral edema. LOWER EXTREMITIES: 2+ pulses, warm, well-perfused. No calf tenderness. No peripheral edema. NEUROLOGICAL: Cranial nerves II-XII intact. Normal speech. left face decreased sensation when compared to the right side; left arm and leg strength 3/5 compared to right sided 5/5; decreased sensation left arm and leg SKIN: Warm, dry, normal turgor, no rashes or lesions noted. Laboratory Results - last 24 hr 10/23/18 10/23/18 20:10 21:56 POC Glucometer 129 145 Active Medications Generic Name Dose Route Start Last Admin Trade Name Freq PRN Reason Stop Dose Admin Acetaminophen 650 mg 10/23/18 13:52 Tylenol - PO Q6H PRN HEADACHE Acetaminophen 1,000 mg 10/23/18 22:12 Ofirmev Injection - IVPB Q6H PRN PAIN LEVEL 6-10 Atorvastatin Calcium 40 mg 10/23/18 22:00 Lipitor - PO HS J LUIS Chlorhexidine Gluconate 1 applic 10/24/18 22:00 Hibiclens For Decolonization - TP HS J LUIS Donepezil HCl 10 mg 10/23/18 22:00 Aricept - PO HS J LUIS Escitalopram Oxalate 10 mg 10/24/18 10:00 Lexapro - PO DAILY J LUIS Lactated Ringer's 1,000 mls @ 75 mls/hr 10/23/18 13:52 10/23/18 21:30 Lactated Ringers Solution IV 0 mls ASDIR J LUIS Administration Insulin Aspart 1 vial 10/23/18 16:30 10/23/18 22:05 Novolog Vial Sliding Scale - SQ Not Given ACHS [facility] Protocol Levothyroxine Sodium 75 mcg 10/24/18 07:00 Synthroid - PO DAILY@0700 J LUIS Mupirocin 1 applic 10/24/18 10:00 Bactroban Ointment (For Decolonization) - NS 10/29/18 09:59 BID J LUIS Pantoprazole Sodium 40 mg 10/24/18 10:00 Protonix - PO DAILY J LUIS Pregabalin 75 mg 10/23/18 14:00 10/23/18 14:00 Lyrica - PO Not Given TID J LUIS Ramipril 2.5 mg 10/24/18 10:00 Altace - PO DAILY [facility] ASSESSMENT/PLAN: This is a 68 year old female with decreased sensation and associated weakness of the left face/arm/leg who was found to have meningioma; taken to OR today for removal. Right parietal craniotomy with removal of meningioma Asymptomatic sinus bradycardia Hypothyroidism Hyperlipidemia HTN Elevated liver enzymes DM -POD#0 craniotomy; with removal of meningioma -aspiration precautions -clear liq diet as per sx -Bp control -Tylenol for pain control -cont Altace 2.5 qd, Lipitor 40 qd -insulin ss; bgm -f/u liver studies VTE ppl ; scds s/p surgery GI ppl ;protonix Dispo: We will continue to follow the patient. Thank you for this consultative opportunity. Visit type - Emergency Visit Emergency Visit: Yes ED Registration Date: 10/20/18 Care time: The patient presented to the Emergency Department on the above date and was hospitalized for further evaluation of their emergent condition. - New Patient This patient is new to me today: Yes Date on this admission: 10/24/18 - Critical Care Critical Care patient: Yes Total Critical Care Time (in minutes): 35 Critical Care Statement: The care of this patient involved high complexity decision making to prevent further life threatening deterioration of the patient 's condition and/or to evaluate & treat vital organ system(s) failure or risk of failure.
[2018-10-23] MEDS: DONEPEZIL HCL 10 MG TABLET (FP) PO SCH (22:21)
[2018-10-23] MEDS: ATORVASTATIN CA 40 MG TABLET (FP) PO SCH (22:23)
[2018-10-23] MEDS: ACETAMINOPHEN 1000 MG/100 ML VIAL (NON FORMULARY) IVPB PRN (23:16)
[2018-10-24] MEDS: INSULIN SLIDING SCALE (NOVOLOG) 1 VIAL SQ SCH ×5 (00:50→21:20)
[2018-10-24] MEDS: ACETAMINOPHEN 1000 MG/100 ML VIAL (NON FORMULARY) IVPB PRN ×3 (04:21→17:13)
--- NOTE | 2018-10-24 06:31 | PN ---
Progress Note (short form) - Note Progress Note: Chief Complaint: Events noted notes reviewed, post right parietal craniotomy with removal of meningioma, denies any chest pain or dyspnea, sinus bradycardia persists History of Present Illness: Seen and examined in the ICU. POD#1 Events noted notes reviewed, post right parietal craniotomy with removal of meningioma, denies any chest pain or dyspnea , sinus bradycardia persists 10/19/2018 Echocardiography revealed norml LV size and function with mild MR - Current Medication List Current Medications Acetaminophen (Tylenol -) 650 mg PO Q6H PRN PRN Reason: HEADACHE Acetaminophen (Ofirmev Injection -) 1,000 mg IVPB Q6H PRN PRN Reason: PAIN LEVEL 6-10 Last Admin: 10/24/18 04:21 Dose: 1,000 mg Atorvastatin Calcium (Lipitor -) 40 mg PO HS [facility] Last Admin: 10/23/18 22:23 Dose: 40 mg Chlorhexidine Gluconate (Hibiclens For Decolonization -) 1 applic TP HS [facility] Donepezil HCl (Aricept -) 10 mg PO [facility] Last Admin: 10/23/18 22:21 Dose: 10 mg Escitalopram Oxalate (Lexapro -) 10 mg PO DAILY [facility] Lactated Ringer's (Lactated Ringers Solution) 1,000 mls @ 75 mls/hr IV ASDIR [facility] Last Admin: 10/23/18 22:23 Dose: 75 mls/hr Insulin Aspart (Novolog Vial Sliding Scale -) 1 vial SQ ACHS [facility]; Protocol Last Admin: 10/24/18 00:50 Dose: Not Given Levothyroxine Sodium (Synthroid -) 75 mcg PO DAILY@0700 [facility] Mupirocin (Bactroban Ointment (For Decolonization) -) 1 applic NS BID [facility] Stop: 10/29/18 09:59 Pantoprazole Sodium (Protonix -) 40 mg PO DAILY [facility] Pregabalin (Lyrica -) 75 mg PO TID [facility] Last Admin: 10/23/18 22:20 Dose: 75 mg Ramipril (Altace -) 2.5 mg PO DAILY [facility] - Review of Systems Cardiovascular: As noted above Respiratory: denies: denies: Cough or Sputum Production Gastrointestinal: denies: Nausea, Vomiting, Diarrhea or Constipation Musculoskeletal: No Symptoms Reported Endocrine: No Symptoms Reported - Objective Vital Signs: Last Vital Signs Temp Pulse Resp BP Pulse Ox 98.9 F 56 L 17 147/64 99 10/24/18 02:00 10/24/18 04:00 10/24/18 04:00 10/24/18 04:00 10/23/18 22:00 Intake & Output 10/21/18 10/22/18 10/23/18 10/24/18 23:59 23:59 23:59 23:59 Intake Total 557 389 3784 Output Total 3170 Balance 220 570 -910 Neck: Supple Negative JVD No Bruit Cardiovascular: S1 S2 Regular Rate Rhythm Respiratory: Diminished Breath Sounds Bilaterally Gastrointestinal: Soft Benign Normal Bowel Sounds Ext: Negative Edema Labs: AM blood test pending Hepatic Panel Total Bilirubin 0.4 mg/dL (0.2-1) 10/20/18 05:30 Direct Bilirubin 0.1 mg/dL (0.0-0.2) 10/20/18 05:30 AST 57 U/L (15-37) H 10/20/18 05:30 ALT 68 U/L (13-61) H 10/20/18 05:30 Alkaline Phosphatase 172 U/L (45-117) H 10/20/18 05:30 Albumin 3.3 g/dl (3.4-5.0) L 10/20/18 05:30 INR, PTT INR Cancelled 10/18/18 17:23 Assessment/Plan ASSESSMENT: 1. POD #1 post right parietal craniotomy with removal of meningioma 2. Persistent asymptomatic sinus bradycardia 3. HTN 4. Hypercholesterolemia 5. Hypothyroidism 6. Abnormal LFTs; down-trending PLAN: 1. As outlined avoid AV david blocking agents 2. Continue Altace and titrate dose as needed 3. Continue Lipitor 4. Resume ASA once cleared by neuro-surgery 5. As outlined in the prior notes no indication for PPM at this point, may pursue ETT to confirm chronotropic competency once fully ambulatory Eyad Lara M.D.
[2018-10-24] MEDS: PREGABALIN 75 MG CAPSULE PO SCH ×3 (06:34→21:11)
[2018-10-24] MEDS: LEVOTHYROXINE NA 75 MCG TABLET (FP) PO SCH (06:34)
[2018-10-24 06:58] LABS: BASO % 0.1 % (0-2.0); HEMOGLOBIN 11.4 GM/dL (10.7-15.3); LYMPH % 12.9 % (8-40); MCH 25.8 pg (25.7-33.7); MCHC 31.6 g/dl (32.0-36.0); MEAN CELL VOLUME 81.7 fl (80-96); MEAN PLT VOLUME 10.1 fl (7.5-11.1); MONO % 6.3 % (3.8-10.2); NEUT % 80.7 % (42.8-82.8); PLATELET COUNT 272 K/MM3 (134-434); RDW 14.6 % (11.6-15.6); WHITE BLOOD COUNT 12.6 K/mm3 (4.0-10.0)
[2018-10-24 07:00] LABS: ALBUMIN 3.3 g/dl (3.4-5.0); ALK PHOS 159 U/L (45-117); ANION GAP 7 MMOL/L (8-16); BILIRUBIN,DIRECT 0.1 mg/dL (0.0-0.2); BILIRUBIN,TOTAL 0.3 mg/dL (0.2-1); BLOOD UREA NITROGEN 14 mg/dL (7-18); CALCIUM 9.2 mg/dL (8.5-10.1); CHLORIDE 104 mmol/L (98-107); CO2 28 mmol/L (21-32); CREATININE 0.8 mg/dL (0.55-1.3); GLUCOSE,RANDOM 114 mg/dL (74-106); MAGNESIUM 1.8 mg/dL (1.8-2.4); PHOSPHOROUS 5.1 mg/dL (2.5-4.9); POTASSIUM 4.5 mmol/L (3.5-5.1); SGOT/AST 62 U/L (15-37); SGPT/ALT 73 U/L (13-61); SODIUM 139 mmol/L (136-145); TOT PROT 6.7 g/dl (6.4-8.2)
[2018-10-24 07:01] LABS: INR 1.05 (0.83-1.09); PROTHROMBIN TIME (PATIENT) 12.4 SEC (9.7-13.0)
[2018-10-24 07:04] LABS: ACTIVATED PTT 28.3 SECONDS (25.2-36.5)
--- NOTE | 2018-10-24 08:18 | PN ---
Progress Note (short form) - Note Progress Note: POD1 s/p craniotomy for removal of right parietal meningioma under GA. Doing well, in good spirits - pain under good control. No anesthetic issues/ complications noted.
--- NOTE | 2018-10-24 08:58 | PN ---
Progress Note (short form) - Note Progress Note: POD #1 Alert. No acute events over night per RN notes. Pain managed well with Ofirmev. Pain 11/03. Denies n/v/f/c, BRAGG, CP, palpitations, SOB or JENNINGS. Last Vital Signs Temp Pulse Resp BP Pulse Ox 98.2 F 58 L 19 138/66 100 10/24/18 06:00 10/24/18 08:00 10/24/18 08:00 10/24/18 08:00 10/24/18 07:30 CBC, BMP 10/24/18 05:30 10/24/18 05:30 Gen: nad Head: dressing c/d/i. Eyes: PERRL Neck: soft, supple, nt Cor: RRR Pulm: cta bilat Neuro: GMNVI bilat LE: scds bilat Problem List - Problems (1) Meningioma Assessment/Plan: POD #1 s/p Right parietal craniotomy w/ excision of meningioma and portion of dura Pain management PRN as ordered DC salcedo and begin trial of void Taper steroids Can downgrade to floor DC planning 10/25/18 Above plan discussed with Dr. Daugherty and agrees Code(s): D32.9 - BENIGN NEOPLASM OF MENINGES, UNSPECIFIED
--- NOTE | 2018-10-24 09:25 | PN ---
Physical Exam: SUBJECTIVE: Patient seen this morning and reports the numbness in her face is getting better. She reports she has pain in the back of her head. OBJECTIVE: Vital Signs Temperature 98.2 F 10/24/18 06:00 Pulse Rate 58 L 10/24/18 08:00 Respiratory Rate 19 10/24/18 08:00 Blood Pressure 138/66 10/24/18 08:00 O2 Sat by Pulse Oximetry (%) 100 10/24/18 07:30 GENERAL: The patient is awake, alert, and fully oriented, in no acute distress. HEAD: head wrapping EYES: PERRL, extraocular movements intact, LUNGS: Breath sounds equal, clear to auscultation bilaterally, no wheezes, no crackles, no accessory muscle use. HEART: Regular rate and rhythm, S1, S2 without murmur, rub or gallop. ABDOMEN: Soft, nontender, nondistended, normoactive bowel sounds, EXTREMITIES: 2+ pulses, warm, well-perfused, no edema. NEUROLOGICAL: lower extremity sensations intact, LE ROM intact, decreased numbness in right side of face per patient PSYCH: Normal mood, normal affect. SKIN: Warm, dry, normal turgor, no rashes or lesions noted CBCD WBC 12.6 K/mm3 (4.0-10.0) H 10/24/18 05:30 RBC 4.40 M/mm3 (3.60-5.2) 10/24/18 05:30 Hgb 11.4 GM/dL (10.7-15.3) 10/24/18 05:30 Hct 36.0 % (32.4-45.2) 10/24/18 05:30 MCV 81.7 fl (80-96) 10/24/18 05:30 MCHC 31.6 g/dl (32.0-36.0) L 10/24/18 05:30 RDW 14.6 % (11.6-15.6) 10/24/18 05:30 Plt Count 272 K/MM3 (134-434) 10/24/18 05:30 MPV 10.1 fl (7.5-11.1) 10/24/18 05:30 CMP Sodium 139 mmol/L (136-145) 10/24/18 05:30 Potassium 4.5 mmol/L (3.5-5.1) 10/24/18 05:30 Chloride 104 mmol/L (98-107) 10/24/18 05:30 Carbon Dioxide 28 mmol/L (21-32) 10/24/18 05:30 Anion Gap 7 MMOL/L (8-16) L 10/24/18 05:30 BUN 14 mg/dL (7-18) 10/24/18 05:30 Creatinine 0.8 mg/dL (0.55-1.3) 10/24/18 05:30 Creat Clearance w eGFR 71.76 (>60) 10/24/18 05:30 Calcium 9.2 mg/dL (8.5-10.1) 10/24/18 05:30 Total Bilirubin 0.3 mg/dL (0.2-1) 10/24/18 05:30 AST 62 U/L (15-37) H 10/24/18 05:30 ALT 73 U/L (13-61) H 10/24/18 05:30 Alkaline Phosphatase 159 U/L (45-117) H 10/24/18 05:30 Total Protein 6.7 g/dl (6.4-8.2) 10/24/18 05:30 Albumin 3.3 g/dl (3.4-5.0) L 10/24/18 05:30 Active Medications Acetaminophen (Tylenol -) 650 mg PO Q6H PRN PRN Reason: HEADACHE Acetaminophen (Ofirmev Injection -) 1,000 mg IVPB Q6H PRN PRN Reason: PAIN LEVEL 6-10 Last Admin: 10/24/18 04:21 Dose: 1,000 mg Atorvastatin Calcium (Lipitor -) 40 mg PO HS [facility] Last Admin: 10/23/18 22:23 Dose: 40 mg Chlorhexidine Gluconate (Hibiclens For Decolonization -) 1 applic TP HS [facility] Donepezil HCl (Aricept -) 10 mg PO HS [facility] Last Admin: 10/23/18 22:21 Dose: 10 mg Escitalopram Oxalate (Lexapro -) 10 mg PO DAILY [facility] Insulin Aspart (Novolog Vial Sliding Scale -) 1 vial SQ ACHS [facility]; Protocol Last Admin: 10/24/18 06:33 Dose: Not Given Levothyroxine Sodium (Synthroid -) 75 mcg PO DAILY@0700 [facility] Last Admin: 10/24/18 06:34 Dose: 75 mcg Mupirocin (Bactroban Ointment (For Decolonization) -) 1 applic NS BID [facility] Stop: 10/29/18 09:59 Pantoprazole Sodium (Protonix -) 40 mg PO DAILY J LUIS Pregabalin (Lyrica -) 75 mg PO TID [facility] Last Admin: 10/24/18 06:34 Dose: 75 mg Ramipril (Altace -) 2.5 mg PO DAILY [facility] ASSESSMENT/PLAN: Patient is a 68 y/o female with a history of sinus bradycardia, hypothyroidism, HLD, HTN, dementia, TIA, and R parietal meningioma. Neuro - POD 1 removal of R meningioma - per patients facial symptoms improved - hx TIA, f/u with neurosurgery to restart aspirin - per neurosurgery stable to be moved to the floors - donepazil 10 mg hs - excitalopram 10 mg po daily - taper steroids Cardio - hx HTN, HLD - continue ramipril for BP - spoke to neuro surgery, can start aspirin tomorrow Pulm - stable GI - protonix 40 po daily Endo - continue SS - pregabalin 75 mg TID FEN - diabetic diet - no fluids - DC salcedo - f/u PT Dispo: can be monitored on med/surg, DC planning 10/25 Visit type - Emergency Visit Emergency Visit: No - New Patient This patient is new to me today: Yes Date on this admission: 10/24/18 - Critical Care Critical Care patient: Yes Total Critical Care Time (in minutes): 35 Critical Care Statement: The care of this patient involved high complexity decision making to prevent further life threatening deterioration of the patient 's condition and/or to evaluate & treat vital organ system(s) failure or risk of failure.
[2018-10-24] MEDS: MUPIROCIN 2% TOPICAL OINTMENT FOR DECOLONIZATION NS SCH ×2 (10:34→21:11)
[2018-10-24] MEDS: ESCITALOPRAM OXALATE 10 MG TABLET (FP) PO SCH (10:38)
[2018-10-24] MEDS: PANTOPRAZOLE 40 MG TABLET (FP) PO SCH (10:38)
[2018-10-24] MEDS: RAMIPRIL 2.5 MG CAPSULE (FP) PO SCH (10:38)
--- NOTE | 2018-10-24 12:43 | PN ---
Teaching Attending Note Name of Resident: Lakeisha Osullivan ATTENDING PHYSICIAN STATEMENT I saw and evaluated the patient. I reviewed the resident's note and discussed the case with the resident. I agree with the resident's findings and plan as documented. SUBJECTIVE: Pt seen and examined in the ICU. s/p meningioma resection. Pain controlled. No current complaints. OBJECTIVE: Vital Signs Period Temp Pulse Resp BP Sys/Mitchell Pulse Ox Last 24 Hr 97.8 F-99.7 F 46-87 12-21 116-147/45-96 95-100 Intake & Output 10/21/18 10/22/18 10/23/18 10/24/18 23:59 23:59 23:59 23:59 Intake Total 150 194 8217 775 Output Total 3170 1600 Balance 220 570 -910 -825 Weight 72.257 kg Gen: NAD at rest Heart: RRR Lung: decreased breath sounds at the bases Abd: soft, nontender Ext: no edema CBC, BMP 10/24/18 05:30 10/24/18 05:30 Active Medications Acetaminophen (Tylenol -) 650 mg PO Q6H PRN PRN Reason: HEADACHE Acetaminophen (Ofirmev Injection -) 1,000 mg IVPB Q6H PRN PRN Reason: PAIN LEVEL 6-10 Last Admin: 10/24/18 10:37 Dose: 1,000 mg Atorvastatin Calcium (Lipitor -) 40 mg PO HS [facility] Last Admin: 10/23/18 22:23 Dose: 40 mg Chlorhexidine Gluconate (Hibiclens For Decolonization -) 1 applic TP HS J [facility] Donepezil HCl (Aricept -) 10 mg PO HS [facility] Last Admin: 10/23/18 22:21 Dose: 10 mg Escitalopram Oxalate (Lexapro -) 10 mg PO DAILY [facility] Last Admin: 10/24/18 10:38 Dose: 10 mg Insulin Aspart (Novolog Vial Sliding Scale -) 1 vial SQ ACHS [facility]; Protocol Last Admin: 10/24/18 12:14 Dose: Not Given Levothyroxine Sodium (Synthroid -) 75 mcg PO DAILY@0700 [facility] Last Admin: 10/24/18 06:34 Dose: 75 mcg Mupirocin (Bactroban Ointment (For Decolonization) -) 1 applic NS BID [facility] Stop: 10/29/18 09:59 Last Admin: 10/24/18 10:34 Dose: 1 applic Pantoprazole Sodium (Protonix -) 40 mg PO DAILY [facility] Last Admin: 10/24/18 10:38 Dose: 40 mg Pregabalin (Lyrica -) 75 mg PO TID [facility] Last Admin: 10/24/18 06:34 Dose: 75 mg Ramipril (Altace -) 2.5 mg PO DAILY [facility] Last Admin: 10/24/18 10:38 Dose: 2.5 mg ASSESSMENT AND PLAN: Meningioma s/p R Parietal Craniotomy/Meningioma Resection HTN Hypercholesterolemia Hypothyroidism Asymptomatic Bradycardia - pain control - resume ASA when ok with surgery - DVT prophylaxis - can monitor on floor
--- NOTE | 2018-10-24 17:25 | PN ---
Physical Exam: SUBJECTIVE: Patient seen and examined at the bedside. recalls the events that led her to the hospital. denies any numbness or tingling. OBJECTIVE: Right parietal craniotomy with removal of meningioma pod #1 Vital Signs Period Temp Pulse Resp BP Sys/Mitchell Pulse Ox Last 24 Hr 97.8 F-99.7 F 45-80 12-21 117-147/58-96 95-100 GENERAL: The patient is awake, alert, and fully oriented, in no acute distress. HEAD: s/p crainiotomy, head bandage clean/dry/intact EYES: PERRL, extraocular movements intact, sclera anicteric, conjunctiva clear. No ptosis. ENT: Ears normal, nares patent, oropharynx clear without exudates, moist mucous membranes. NECK: Trachea midline, full range of motion, supple. HEART: Regular rate and rhythm ABDOMEN: Soft, nontender, nondistended, normoactive bowel sounds EXTREMITIES: no edema. NEUROLOGICAL: Normal speech, gait not observed. PSYCH: Normal mood, normal affect. Laboratory Results - last 24 hr 10/23/18 10/23/18 10/24/18 20:10 21:56 05:30 WBC RBC Hgb Hct MCV MCH MCHC RDW Plt Count MPV Absolute Neuts (auto) Neutrophils % Lymphocytes % Monocytes % Eosinophils % Basophils % Nucleated RBC % PT with INR INR PTT (Actin FS) Sodium 139 Potassium 4.5 Chloride 104 Carbon Dioxide 28 Anion Gap 7 L BUN 14 Creatinine 0.8 Creat Clearance w eGFR 71.76 POC Glucometer 129 145 Random Glucose 114 H Calcium 9.2 Phosphorus 5.1 H Magnesium 1.8 Total Bilirubin 0.3 Direct Bilirubin 0.1 AST 62 H ALT 73 H Alkaline Phosphatase 159 H Total Protein 6.7 Albumin 3.3 L 10/24/18 10/24/18 10/24/18 05:30 05:30 06:30 WBC 12.6 H RBC 4.40 Hgb 11.4 Hct 36.0 MCV 81.7 MCH 25.8 MCHC 31.6 L RDW 14.6 Plt Count 272 MPV 10.1 Absolute Neuts (auto) 10.1 H Neutrophils % 80.7 D Lymphocytes % 12.9 D Monocytes % 6.3 Eosinophils % 0.0 D Basophils % 0.1 Nucleated RBC % 0 PT with INR 12.40 INR 1.05 PTT (Actin FS) 28.3 Sodium Potassium Chloride Carbon Dioxide Anion Gap BUN Creatinine Creat Clearance w eGFR POC Glucometer 109 Random Glucose Calcium Phosphorus Magnesium Total Bilirubin Direct Bilirubin AST ALT Alkaline Phosphatase Total Protein Albumin 10/24/18 11:58 WBC RBC Hgb Hct MCV MCH MCHC RDW Plt Count MPV Absolute Neuts (auto) Neutrophils % Lymphocytes % Monocytes % Eosinophils % Basophils % Nucleated RBC % PT with INR INR PTT (Actin FS) Sodium Potassium Chloride Carbon Dioxide Anion Gap BUN Creatinine Creat Clearance w eGFR POC Glucometer 85 Random Glucose Calcium Phosphorus Magnesium Total Bilirubin Direct Bilirubin AST ALT Alkaline Phosphatase Total Protein Albumin Active Medications Generic Name Dose Route Start Last Admin Trade Name Freq PRN Reason Stop Dose Admin Acetaminophen 650 mg 10/23/18 13:52 Tylenol - PO Q6H PRN HEADACHE Atorvastatin Calcium 40 mg 10/23/18 22:00 10/23/18 22:23 Lipitor - PO 40 mg HS J LUIS Administration Chlorhexidine Gluconate 1 applic 10/24/18 22:00 Hibiclens For Decolonization - TP HS J LUIS Donepezil HCl 10 mg 10/23/18 22:00 10/23/18 22:21 Aricept - PO 10 mg HS J LUIS Administration Escitalopram Oxalate 10 mg 10/24/18 10:00 10/24/18 10:38 Lexapro - PO 10 mg DAILY J LUIS Administration Insulin Aspart 1 vial 10/23/18 16:30 10/24/18 12:14 Novolog Vial Sliding Scale - SQ Not Given [facility]S [facility] Protocol Levothyroxine Sodium 75 mcg 10/24/18 07:00 10/24/18 06:34 Synthroid - PO 75 mcg DAILY@0700 J LUIS Administration Mupirocin 1 applic 10/24/18 10:00 10/24/18 10:34 Bactroban Ointment (For Decolonization) - NS 10/29/18 09:59 1 applic BID J LUIS Administration Pantoprazole Sodium 40 mg 10/24/18 10:00 10/24/18 10:38 Protonix - PO 40 mg DAILY J LUIS Administration Pregabalin 75 mg 10/23/18 14:00 10/24/18 14:11 Lyrica - PO 75 mg TID J LUIS Administration Ramipril 2.5 mg 10/24/18 10:00 10/24/18 10:38 Altace - PO 2.5 mg DAILY J LUIS Administration ASSESSMENT/PLAN: Patient is a 68 year old female with a significant past medical history of HTN, HLD, NIDDM, GERD, NIDDM, TIA, GERD, osteoarthritis, osteoporosis, hypothyroidism s/p thyroidectomy. She was admitted on 10/20/18 after she experienced left facial upper extremity and lower extremity paresthesias as well as paresthesias around her lips when she woke up in the morning, associated with headache. She also c/o some left upper and lower extremity weakness. Patient went for endocrine apt with Dr. Ohara and found to be very bradycardic and sent to the ED for further evaluation. imaging: brain mri:no evidence of demyelinating plaques, hemorrhage or acute infarction. 7mm in diameter sharply delinated enhancing focus in right parietal convexity adjacent to the dura evident on axil image compatible for a small meningioma. Neuro: post of day #1 crainiotomy s/p meningioma resection Mentation at baseline, awake and alert. neuro checks seizure precautions restart asa per neuro monitor mental status and bp on lipitor Card Hypertention. controlled on ramipril fen tolerating po monitor electrolytes full code Visit type - Emergency Visit Emergency Visit: Yes ED Registration Date: 10/20/18 Care time: The patient presented to the Emergency Department on the above date and was hospitalized for further evaluation of their emergent condition. - New Patient This patient is new to me today: Yes Date on this admission: 10/24/18 - Critical Care Critical Care patient: Yes Total Critical Care Time (in minutes): 45 Critical Care Statement: The care of this patient involved high complexity decision making to prevent further life threatening deterioration of the patient 's condition and/or to evaluate & treat vital organ system(s) failure or risk of failure. - Discharge Referral Referred to [facility] Med [facility] No
[2018-10-24] MEDS: ATORVASTATIN CA 40 MG TABLET (FP) PO SCH (21:11)
[2018-10-24] MEDS: CHLORHEXIDINE GLUCONATE 4% CLEANSER FOR DECOLONIZATION TP SCH (21:11)
[2018-10-24] MEDS: DONEPEZIL HCL 10 MG TABLET (FP) PO SCH (21:11)
[2018-10-24] MEDS: ACETAMINOPHEN 325 MG TABLET (FP) PO PRN (23:08)
[2018-10-24] MEDS ORDERED: morphine SULFATE 4 MG/ML VIAL ONE (23:34)
[2018-10-25] MEDS: PREGABALIN 75 MG CAPSULE PO SCH ×3 (06:00→22:21)
[2018-10-25] MEDS: INSULIN SLIDING SCALE (NOVOLOG) 1 VIAL SQ SCH ×4 (06:00→22:20)
[2018-10-25] MEDS: LEVOTHYROXINE NA 75 MCG TABLET (FP) PO SCH (06:00)
[2018-10-25 06:45] LABS: HEMATOCRIT 35.2 % (32.4-45.2); MCH 26.1 pg (25.7-33.7); MCHC 31.4 g/dl (32.0-36.0); MEAN CELL VOLUME 83.2 fl (80-96); MEAN PLT VOLUME 10.3 fl (7.5-11.1); PLATELET COUNT 261 K/MM3 (134-434); RBC 4.23 M/mm3 (3.60-5.2); RDW 14.8 % (11.6-15.6); WHITE BLOOD COUNT 13.5 K/mm3 (4.0-10.0)
[2018-10-25 07:13] LABS: ALBUMIN 3.3 g/dl (3.4-5.0); ALK PHOS 156 U/L (45-117); ANION GAP 4 MMOL/L (8-16); BILIRUBIN,TOTAL 0.4 mg/dL (0.2-1); BLOOD UREA NITROGEN 15 mg/dL (7-18); CALCIUM 8.6 mg/dL (8.5-10.1); CHLORIDE 104 mmol/L (98-107); CO2 30 mmol/L (21-32); CREATININE 0.8 mg/dL (0.55-1.3); GLUCOSE,RANDOM 83 mg/dL (74-106); MAGNESIUM 2.1 mg/dL (1.8-2.4); PHOSPHOROUS 3.9 mg/dL (2.5-4.9); POTASSIUM 4.4 mmol/L (3.5-5.1); SGOT/AST 38 U/L (15-37); SGPT/ALT 57 U/L (13-61); SODIUM 139 mmol/L (136-145); TOT PROT 6.8 g/dl (6.4-8.2)
[2018-10-25] MEDS ORDERED: morphine SULFATE 4 MG/ML VIAL IVPUSH ONE (07:52)
--- NOTE | 2018-10-25 08:03 | PN ---
Progress Note (short form) - Note Progress Note: POD #2 Alert. Per RN notes, no acute events over past 24 hours. Patient c/o a lot of pain over incision. Patient's PAIN MAR checked and she is having 8/10. She is OOB and ambulating w/ rolling walker/PT assist. Tolerating PO diet. Denies n/v/f /c, CP, SOB, JENNINGS, weakness or dizzy. Last Vital Signs Temp Pulse Resp BP Pulse Ox 98.1 F 58 L 20 126/77 95 10/25/18 06:08 10/25/18 06:08 10/25/18 06:08 10/25/18 06:08 10/24/18 22:33 CBC 10/25/18 05:30 PE Gen: nad Head: (dressing take down on rounds). Jordi intact. No evidence of hematoma. No oozing. No signs of infection Eyes: PERRL Neck: soft, supple, nt Cor: RRR Pulm: cta bilat Neuro: GMNVI bilat LE: scds bilat Problem List - Problems (1) Meningioma Assessment/Plan: POD #2 s/p Right parietal craniotomy w/ excision of meningioma and portion of dura Pain management as ordered OOB with assist and ambulate Taper steroids Awaiting transfer to floor for continued management DC planning 10/26/18 Above plan discussed with Dr. Daugherty and agrees Code(s): D32.9 - BENIGN NEOPLASM OF MENINGES, UNSPECIFIED Problem List - Problems (1) Meningioma Code(s): D32.9 - BENIGN NEOPLASM OF MENINGES, UNSPECIFIED
[2018-10-25] MEDS ORDERED: morphine SULFATE 4 MG/ML VIAL ONE (08:09)
--- NOTE | 2018-10-25 08:11 | PN ---
Physical Exam: SUBJECTIVE: Patient seen this morning with increased pain in her head. No acute events overnight OBJECTIVE: Vital Signs Temperature 98 F 10/25/18 10:00 Pulse Rate 42 L 10/25/18 12:00 Respiratory Rate 16 10/25/18 12:00 Blood Pressure 132/68 10/25/18 12:00 O2 Sat by Pulse Oximetry (%) 96 10/25/18 10:00 GENERAL: The patient is awake, alert, and fully oriented, in no acute distress. HEAD: head wrapping EYES: PERRL, extraocular movements intact, LUNGS: Breath sounds equal, clear to auscultation bilaterally, no wheezes, no crackles, no accessory muscle use. HEART: Regular rate and rhythm, S1, S2 without murmur, rub or gallop. ABDOMEN: Soft, nontender, nondistended, normoactive bowel sounds, EXTREMITIES: 2+ pulses, warm, well-perfused, no edema. NEUROLOGICAL: lower extremity sensations intact, LE ROM intact, decreased numbness in right side of face per patient PSYCH: Normal mood, normal affect. SKIN: Warm, dry, normal turgor, no rashes or lesions noted Laboratory Results - last 24 hr 10/24/18 10/25/18 11:58 05:30 Sodium 139 Potassium 4.4 Chloride 104 Carbon Dioxide 30 Anion Gap 4 L BUN 15 Creatinine 0.8 Creat Clearance w eGFR 71.76 POC Glucometer 85 Random Glucose 83 Calcium 8.6 Phosphorus 3.9 Magnesium 2.1 Total Bilirubin 0.4 AST 38 H ALT 57 Alkaline Phosphatase 156 H Total Protein 6.8 Albumin 3.3 L Active Medications Acetaminophen (Tylenol -) 650 mg PO Q6H PRN PRN Reason: HEADACHE Last Admin: 10/24/18 23:08 Dose: 650 mg Atorvastatin Calcium (Lipitor -) 40 mg PO HS REPLACED BY [facility] Last Admin: 10/24/18 21:11 Dose: 40 mg Chlorhexidine Gluconate (Hibiclens For Decolonization -) 1 applic TP HS REPLACED BY [facility] Last Admin: 10/24/18 21:11 Dose: 1 applic Donepezil HCl (Aricept -) 10 mg PO HS J LUIS Last Admin: 10/24/18 21:11 Dose: 10 mg Escitalopram Oxalate (Lexapro -) 10 mg PO DAILY REPLACED BY [facility] Last Admin: 10/24/18 10:38 Dose: 10 mg Insulin Aspart (Novolog Vial Sliding Scale -) 1 vial SQ ACHS REPLACED BY [facility]; Protocol Last Admin: 10/25/18 06:00 Dose: Not Given Levothyroxine Sodium (Synthroid -) 75 mcg PO DAILY@0700 REPLACED BY [facility] Last Admin: 10/25/18 06:00 Dose: 75 mcg Mupirocin (Bactroban Ointment (For Decolonization) -) 1 applic NS BID REPLACED BY [facility] Stop: 10/29/18 09:59 Last Admin: 10/24/18 21:11 Dose: 1 applic Pantoprazole Sodium (Protonix -) 40 mg PO DAILY REPLACED BY [facility] Last Admin: 10/24/18 10:38 Dose: 40 mg Pregabalin (Lyrica -) 75 mg PO TID REPLACED BY [facility] Last Admin: 10/25/18 06:00 Dose: 75 mg Ramipril (Altace -) 2.5 mg PO DAILY REPLACED BY [facility] Last Admin: 10/24/18 10:38 Dose: 2.5 mg ASSESSMENT/PLAN: Patient is a 68 y/o female with a history of sinus bradycardia, hypothyroidism, HLD, HTN, dementia, TIA, and R parietal meningioma. Neuro - POD 2 removal of R meningioma - per patients facial symptoms improved - hx TIA, f/u with neurosurgery to restart aspirin - per neurosurgery stable to be moved to the floors - donepazil 10 mg hs - excitalopram 10 mg po daily - oxycodone 5 mg to be given with tylenol for pain as needed Cardio - hx HTN, HLD - continue ramipril for BP - lipitor 40 daily - patient does not take aspirin at home has an allergy that causes vomiting and nausea Pulm - stable GI - protonix 40 po daily Endo - continue SS - pregabalin 75 mg TID FEN - diabetic diet - f/u PT Dispo: can be monitored on med/surg, DC planning 10/26 Visit type - Emergency Visit Emergency Visit: No - New Patient This patient is new to me today: No - Critical Care Critical Care patient: Yes Total Critical Care Time (in minutes): 35 Critical Care Statement: The care of this patient involved high complexity decision making to prevent further life threatening deterioration of the patient 's condition and/or to evaluate & treat vital organ system(s) failure or risk of failure.
[2018-10-25] MEDS: PANTOPRAZOLE 40 MG TABLET (FP) PO SCH (08:59)
[2018-10-25] MEDS: ESCITALOPRAM OXALATE 10 MG TABLET (FP) PO SCH (08:59)
[2018-10-25] MEDS: MUPIROCIN 2% TOPICAL OINTMENT FOR DECOLONIZATION NS SCH ×2 (08:59→22:21)
[2018-10-25] MEDS: RAMIPRIL 2.5 MG CAPSULE (FP) PO SCH (10:39)
[2018-10-25] MEDS ORDERED: oxyCODONE HCL 5 MG TABLET PO PRN (11:32)
--- NOTE | 2018-10-25 13:03 | PN ---
Progress Note, Physician History of Present Illness: Right parietal meningioma resection POD#2. Denies BRAGG and left facial tingling. - Current Medication List Current Medications: Active Medications Acetaminophen (Tylenol -) 650 mg PO Q6H PRN PRN Reason: HEADACHE Last Admin: 10/24/18 23:08 Dose: 650 mg Atorvastatin Calcium (Lipitor -) 40 mg PO HS [facility] Last Admin: 10/24/18 21:11 Dose: 40 mg Chlorhexidine Gluconate (Hibiclens For Decolonization -) 1 applic TP [facility] Last Admin: 10/24/18 21:11 Dose: 1 applic Donepezil HCl (Aricept -) 10 mg PO HS [facility] Last Admin: 10/24/18 21:11 Dose: 10 mg Escitalopram Oxalate (Lexapro -) 10 mg PO DAILY [facility] Last Admin: 10/25/18 08:59 Dose: 10 mg Insulin Aspart (Novolog Vial Sliding Scale -) 1 vial SQ ACHS [facility]; Protocol Last Admin: 10/25/18 12:51 Dose: Not Given Levothyroxine Sodium (Synthroid -) 75 mcg PO DAILY@0700 [facility] Last Admin: 10/25/18 06:00 Dose: 75 mcg Mupirocin (Bactroban Ointment (For Decolonization) -) 1 applic NS BID [facility] Stop: 10/29/18 09:59 Last Admin: 10/25/18 08:59 Dose: 1 applic Oxycodone HCl (Roxicodone -) 5 mg PO Q6H PRN PRN Reason: PAIN LEVEL 6-10 Pantoprazole Sodium (Protonix -) 40 mg PO DAILY [facility] Last Admin: 10/25/18 08:59 Dose: 40 mg Pregabalin (Lyrica -) 75 mg PO TID [facility] Last Admin: 10/25/18 06:00 Dose: 75 mg Ramipril (Altace -) 2.5 mg PO DAILY [facility] Last Admin: 10/25/18 10:39 Dose: 2.5 mg Senna/Docusate Sodium (Pericolace -) 1 tablet PO BID [facility] - Objective Vital Signs: Vital Signs Temperature 98 F 10/25/18 10:00 Pulse Rate 42 L 10/25/18 12:00 Respiratory Rate 16 10/25/18 12:00 Blood Pressure 132/68 10/25/18 12:00 O2 Sat by Pulse Oximetry (%) 96 10/25/18 10:00 Constitutional: Yes: No Distress, Calm Neck: Yes: Supple Cardiovascular: Yes: Regular Rate and Rhythm Respiratory: Yes: Regular, Diminished, On Nasal O2 Gastrointestinal: Yes: Normal Bowel Sounds, Soft Edema: No Labs: CBC, BMP 10/25/18 05:30 10/25/18 05:30 INR, PTT INR 1.05 (0.83-1.09) 10/24/18 05:30 - ....Imaging EKG: Report Reviewed (Tele: SB @ 45) Problem List - Problems (1) Elevated LFTs Code(s): R94.5 - ABNORMAL RESULTS OF LIVER FUNCTION STUDIES (2) Left face and left arm tingling Code(s): R20.2 - PARESTHESIA OF SKIN (3) Headache Code(s): R51 - HEADACHE Qualifiers: Qualified Code(s): G44.209 - Tension-type headache, unspecified, not intractable (4) Hyperlipidemia Code(s): E78.5 - HYPERLIPIDEMIA, UNSPECIFIED Qualifiers: Qualified Code(s): E78.00 - Pure hypercholesterolemia, unspecified; E78.0 - Pure hypercholesterolemia (5) Hypertension Code(s): I10 - ESSENTIAL (PRIMARY) HYPERTENSION Qualifiers: Qualified Code(s): I10 - Essential (primary) hypertension (6) Hypothyroidism Code(s): E03.9 - HYPOTHYROIDISM, UNSPECIFIED Qualifiers: Qualified Code(s): E03.9 - Hypothyroidism, unspecified (7) Sinus bradycardia Code(s): R00.1 - BRADYCARDIA, UNSPECIFIED (8) Meningioma Code(s): D32.9 - BENIGN NEOPLASM OF MENINGES, UNSPECIFIED Assessment/Plan 10/19/2018 Echo: Norml LV size and fxn, mild MR 1. POD #2 s/p Right parietal craniotomy w/ excision of meningioma and portion of dura Asymptomatic sinus bradycardia 2. Left facial numbness, rt parietal meningioma vs partial seizure 4. Hypothyroidism 5. Hyperlipidemia 6. HTN heart disease 7. Abnl LFTs downtrending P:1. Avoid AV david agents 2. Continue Altace 2.5 qd, Lipitor 40 qd, resume ASA 81 qd once post-op hemostasis achieved 4. No indication for PPM at this point, may pursue ETT to confirm chronotropic competency 5. Taper steroids
--- NOTE | 2018-10-25 13:41 | PN ---
Teaching Attending Note Name of Resident: Lakeisha Osullivan ATTENDING PHYSICIAN STATEMENT I saw and evaluated the patient. I reviewed the resident's note and discussed the case with the resident. I agree with the resident's findings and plan as documented. SUBJECTIVE: Pt seen and examined in the ICU. Pain controlled. No nausea or vomiting. No fevers. States she gets abdominal pain and vomiting with ASA. OBJECTIVE: Vital Signs Period Temp Pulse Resp BP Sys/Mitchell Pulse Ox Last 24 Hr 97.9 F-98.6 F 42-61 13-20 110-148/58-97 95-98 Intake & Output 10/22/18 10/23/18 10/24/18 10/25/18 23:59 23:59 23:59 23:59 Intake Total 570 2260 1175 240 Output Total 3170 2100 Balance 570 -910 -925 240 Weight 72.257 kg 70.579 kg Gen: NAD at rest Heart: RRR Lung: decreased breath sounds at the bases Abd: soft, nontender Ext: no edema CBC, BMP 10/25/18 05:30 10/25/18 05:30 Active Medications Acetaminophen (Tylenol -) 650 mg PO Q6H PRN PRN Reason: HEADACHE Last Admin: 10/24/18 23:08 Dose: 650 mg Atorvastatin Calcium (Lipitor -) 40 mg PO HS [facility] Last Admin: 10/24/18 21:11 Dose: 40 mg Chlorhexidine Gluconate (Hibiclens For Decolonization -) 1 applic TP HS [facility] Last Admin: 10/24/18 21:11 Dose: 1 applic Donepezil HCl (Aricept -) 10 mg PO HS [facility] Last Admin: 10/24/18 21:11 Dose: 10 mg Escitalopram Oxalate (Lexapro -) 10 mg PO DAILY [facility] Last Admin: 10/25/18 08:59 Dose: 10 mg Insulin Aspart (Novolog Vial Sliding Scale -) 1 vial SQ ACHS [facility]; Protocol Last Admin: 10/25/18 12:51 Dose: Not Given Levothyroxine Sodium (Synthroid -) 75 mcg PO DAILY@0700 [facility] Last Admin: 10/25/18 06:00 Dose: 75 mcg Mupirocin (Bactroban Ointment (For Decolonization) -) 1 applic NS BID [facility] Stop: 10/29/18 09:59 Last Admin: 10/25/18 08:59 Dose: 1 applic Oxycodone HCl (Roxicodone -) 5 mg PO Q6H PRN PRN Reason: PAIN LEVEL 6-10 Pantoprazole Sodium (Protonix -) 40 mg PO DAILY [facility] Last Admin: 10/25/18 08:59 Dose: 40 mg Pregabalin (Lyrica -) 75 mg PO TID [facility] Last Admin: 10/25/18 06:00 Dose: 75 mg Ramipril (Altace -) 2.5 mg PO DAILY [facility] Last Admin: 10/25/18 10:39 Dose: 2.5 mg Senna/Docusate Sodium (Pericolace -) 1 tablet PO BID [facility] ASSESSMENT AND PLAN: Meningioma s/p R Parietal Craniotomy/Meningioma Resection HTN Hypercholesterolemia Hypothyroidism Asymptomatic Bradycardia - pain control - rehab/PT - DVT prophylaxis - can monitor on floor
[2018-10-25] MEDS: ACETAMINOPHEN 325 MG TABLET (FP) PO PRN ×2 (15:46→22:20)
--- NOTE | 2018-10-25 16:30 | PDOC ---
Documentation entered by Amparo Cash SCRIBE, acting as scribe for Jennifer Stanford DO. Jennifer Stanford, DO: This documentation has been prepared by the Shailesh ramirez Collisia, SCRIBE, under my direction and personally reviewed by me in its entirety. I confirm that the documentation accurately reflects all work, treatment, procedures, and medical decision making performed by me. Attending Attestation - HPI HPI: 10/25/18 16:30 please see other note - Physicial Exam PE: 10/25/18 16:30 please see other note - Medical Decision Making 10/25/18 16:30 please see other note
--- NOTE | 2018-10-25 18:46 | PN ---
Physical Exam: SUBJECTIVE: Patient seen and examined 24HR EVENTS: -pt reports pain not controlled with APAP at craniotomy incision site. -no acute changes in clinical status OBJECTIVE: Vital Signs Period Temp Pulse Resp BP Sys/Mitchell Pulse Ox Last 24 Hr 98 F-100.1 F 42-59 13-20 110-148/58-97 95-98 GENERAL: The patient is awake, alert, and fully oriented, in no acute distress. HEAD: clean dry dressing to head. EYES: PERRL, sclera anicteric, conjunctiva clear. No ptosis. ENT: nares patent, oropharynx clear without exudates, moist mucous membranes. NECK: Trachea midline, full range of motion, supple. LUNGS: Breath sounds equal, clear to auscultation bilaterally, no wheezes, no crackles, no accessory muscle use. HEART: Regular rate and rhythm, S1, S2 without murmur, rub or gallop. ABDOMEN: Soft, nontender, nondistended, normoactive bowel sounds, no guarding, no rebound, no hepatosplenomegaly, no masses. EXTREMITIES: 2+ pulses, warm, well-perfused, no edema. NEUROLOGICAL: Normal speech, gait not observed. PSYCH: Normal mood, normal affect. SKIN: Warm, dry, normal turgor, no rashes or lesions noted Laboratory Results - last 24 hr 10/25/18 10/25/18 10/25/18 05:30 05:30 12:48 WBC 13.5 H RBC 4.23 Hgb 11.0 Hct 35.2 MCV 83.2 MCH 26.1 MCHC 31.4 L RDW 14.8 Plt Count 261 MPV 10.3 Sodium 139 Potassium 4.4 Chloride 104 Carbon Dioxide 30 Anion Gap 4 L BUN 15 Creatinine 0.8 Creat Clearance w eGFR 71.76 POC Glucometer 87 Random Glucose 83 Calcium 8.6 Phosphorus 3.9 Magnesium 2.1 Total Bilirubin 0.4 AST 38 H ALT 57 Alkaline Phosphatase 156 H Total Protein 6.8 Albumin 3.3 L 10/25/18 15:42 WBC RBC Hgb Hct MCV MCH MCHC RDW Plt Count MPV Sodium Potassium Chloride Carbon Dioxide Anion Gap BUN Creatinine Creat Clearance w eGFR POC Glucometer 106 Random Glucose Calcium Phosphorus Magnesium Total Bilirubin AST ALT Alkaline Phosphatase Total Protein Albumin Active Medications Generic Name Dose Route Start Last Admin Trade Name Freq PRN Reason Stop Dose Admin Acetaminophen 650 mg 10/23/18 13:52 10/25/18 15:46 Tylenol - PO 650 mg Q6H PRN Administration HEADACHE Atorvastatin Calcium 40 mg 10/23/18 22:00 10/24/18 21:11 Lipitor - PO 40 mg HS J LUIS Administration Chlorhexidine Gluconate 1 applic 10/24/18 22:00 10/24/18 21:11 Hibiclens For Decolonization - TP 1 applic HS J LUIS Administration Donepezil HCl 10 mg 10/23/18 22:00 10/24/18 21:11 Aricept - PO 10 mg HS J LUIS Administration Escitalopram Oxalate 10 mg 10/24/18 10:00 10/25/18 08:59 Lexapro - PO 10 mg DAILY J LUIS Administration Insulin Aspart 1 vial 10/23/18 16:30 10/25/18 15:46 Novolog Vial Sliding Scale - SQ Not Given ACHS [facility] Protocol Levothyroxine Sodium 75 mcg 10/24/18 07:00 10/25/18 06:00 Synthroid - PO 75 mcg DAILY@0700 J LUIS Administration Mupirocin 1 applic 10/24/18 10:00 10/25/18 08:59 Bactroban Ointment (For Decolonization) - NS 10/29/18 09:59 1 applic BID J LUIS Administration Oxycodone HCl 5 mg 10/25/18 11:32 Roxicodone - PO Q6H PRN PAIN LEVEL 6-10 Pantoprazole Sodium 40 mg 10/24/18 10:00 10/25/18 08:59 Protonix - PO 40 mg DAILY J LUIS Administration Pregabalin 75 mg 10/23/18 14:00 10/25/18 14:53 Lyrica - PO 75 mg TID J LUIS Administration Ramipril 2.5 mg 10/24/18 10:00 10/25/18 10:39 Altace - PO 2.5 mg DAILY J LUIS Administration Senna/Docusate Sodium 1 tablet 10/25/18 22:00 Pericolace - PO BID [facility] ASSESSMENT/PLAN: 68 year old female with a significant past medical history of HTN, HLD, NIDDM, GERD, NIDDM, TIA, GERD, osteoarthritis, osteoporosis, hypothyroidism s/p thyroidectomy. She was admitted on 10/20/18 after she experienced left facial upper extremity and lower extremity paresthesias as well as paresthesias around her lips when she woke up in the morning, associated with headache. MRI Brain demonstrated no evidence of demyelinating plaques, hemorrhage or acute infarction. 7mm in diameter sharply delineated enhancing focus in right parietal convexity adjacent to the dura evident on axial image compatible for a small meningioma. She is now s/p craniotomy with meningioma resection. NEURO: s/p crainiotomy with meningioma resection -neuro check Q4h -seizure precautions -pain control with APAP for moderate pain and oxycodone for severe pain -lyrica TID for neuropathic pain Dementia, depession -cont aricept 10mg qhs -cont lexapro 10mg daily CV: HTN, HLD, Sinus durga -lipitor 40mg qhs -ramipril 2.5mg daily -avoid AVNB agents due to bradycardia Endo: hypothyroidism, DMII -synthroid 75mcg daily -fingerstick AC/HS -insulin SS FEN: diabetic diet PPX: PPI daily bowel regimen with senna and colace Code status: Full DISPO: pt can be downgraded from ICU status on 10/26 Problem List - Problems (1) Bradycardia Code(s): R00.1 - BRADYCARDIA, UNSPECIFIED (2) Meningioma Code(s): D32.9 - BENIGN NEOPLASM OF MENINGES, UNSPECIFIED (3) Paresthesia Code(s): R20.2 - PARESTHESIA OF SKIN (4) Diabetes mellitus Code(s): E11.9 - TYPE 2 DIABETES MELLITUS WITHOUT COMPLICATIONS Qualifiers: Diabetes mellitus type: type 2 (5) Hyperlipidemia Code(s): E78.5 - HYPERLIPIDEMIA, UNSPECIFIED Qualifiers: Hyperlipidemia type: pure hypercholesterolemia Qualified Code(s): E78.00 - Pure hypercholesterolemia, unspecified; E78.0 - Pure hypercholesterolemia (6) Hypertension Code(s): I10 - ESSENTIAL (PRIMARY) HYPERTENSION Qualifiers: Hypertension type: essential hypertension Qualified Code(s): I10 - Essential (primary) hypertension (7) Hypothyroidism Code(s): E03.9 - HYPOTHYROIDISM, UNSPECIFIED Qualifiers: Hypothyroidism type: unspecified Qualified Code(s): E03.9 - Hypothyroidism , unspecified Visit type - Emergency Visit Emergency Visit: Yes ED Registration Date: 10/20/18 Care time: The patient presented to the Emergency Department on the above date and was hospitalized for further evaluation of their emergent condition. - New Patient This patient is new to me today: Yes Date on this admission: 10/25/18 - Critical Care Critical Care patient: Yes Total Critical Care Time (in minutes): 40 Critical Care Statement: The care of this patient involved high complexity decision making to prevent further life threatening deterioration of the patient 's condition and/or to evaluate & treat vital organ system(s) failure or risk of failure. - Discharge Referral Referred to [facility] Med P.C.: No
[2018-10-25] MEDS: DONEPEZIL HCL 10 MG TABLET (FP) PO SCH (22:21)
[2018-10-25] MEDS: CHLORHEXIDINE GLUCONATE 4% CLEANSER FOR DECOLONIZATION TP SCH (22:21)
[2018-10-25] MEDS: SENNOSIDES/DOCUSATE COMBO (SENNA PLUS) TABLET (UD) PO SCH (22:21)
[2018-10-25] MEDS: ATORVASTATIN CA 40 MG TABLET (FP) PO SCH (22:21)
[2018-10-25 22:39] VITALS: BMI 27.4
[2018-10-26] MEDS: PREGABALIN 75 MG CAPSULE PO SCH (06:23)
[2018-10-26] MEDS: LEVOTHYROXINE NA 75 MCG TABLET (FP) PO SCH (06:24)
[2018-10-26] MEDS: INSULIN SLIDING SCALE (NOVOLOG) 1 VIAL SQ SCH ×2 (06:24→11:18)
[2018-10-26 06:37] LABS: HEMATOCRIT 36.2 % (32.4-45.2); HEMOGLOBIN 11.7 GM/dL (10.7-15.3); MCH 26.5 pg (25.7-33.7); MCHC 32.3 g/dl (32.0-36.0); MEAN CELL VOLUME 82.1 fl (80-96); MEAN PLT VOLUME 9.9 fl (7.5-11.1); PLATELET COUNT 244 K/MM3 (134-434); RBC 4.41 M/mm3 (3.60-5.2); RDW 14.7 % (11.6-15.6); WHITE BLOOD COUNT 13.2 K/mm3 (4.0-10.0)
[2018-10-26 06:58] LABS: ANION GAP 7 MMOL/L (8-16); BLOOD UREA NITROGEN 14 mg/dL (7-18); CALCIUM 8.6 mg/dL (8.5-10.1); CHLORIDE 102 mmol/L (98-107); CO2 31 mmol/L (21-32); CREATININE 0.9 mg/dL (0.55-1.3); GLUCOSE,RANDOM 101 mg/dL (74-106); PHOSPHOROUS 4.5 mg/dL (2.5-4.9); POTASSIUM 4.2 mmol/L (3.5-5.1); SODIUM 139 mmol/L (136-145)
[2018-10-26] MEDS ORDERED: PT OWN MED DRAWER 7, Y5N ONE (08:22)
[2018-10-26] MEDS ORDERED: DEXAMETHASONE SOD PHOSPHATE 10 MG/1 ML VIAL ONE (08:22)
[2018-10-26] MEDS: SENNOSIDES/DOCUSATE COMBO (SENNA PLUS) TABLET (UD) PO SCH (09:57)
[2018-10-26] MEDS: RAMIPRIL 2.5 MG CAPSULE (FP) PO SCH ×2 (09:57→10:01)
[2018-10-26] MEDS: PANTOPRAZOLE 40 MG TABLET (FP) PO SCH (09:57)
[2018-10-26] MEDS: ESCITALOPRAM OXALATE 10 MG TABLET (FP) PO SCH (09:58)
[2018-10-26] MEDS: MUPIROCIN 2% TOPICAL OINTMENT FOR DECOLONIZATION NS SCH (09:58)
--- NOTE | 2018-10-26 10:03 | PN ---
Progress Note (short form) - Note Progress Note: POD#3 PT without complaints of headache. No nausea or emesis. Ambulating with assistance. Vital Signs Period Temp Pulse Resp BP Sys/Mitchell Pulse Ox Last 24 Hr 99 F-100.8 F 42-73 12-19 107-146/58-76 90-90 GEN: A&0x3, NAD HEAD: Outer dressing changed. Tegaderm/telfa dressing in place. No drainage/ erythema/swelling noted. Reapplied kerlex and stocking dressing. CV: RRR Lungs: CTA b/l anteriorly ABD: soft, non-distended, non-tender Neuro: Follows commands, RUE 5/5 flexion/extension. LUE 4/5 with flexion/ extenstion. LE: 5/5 dorsi/plantar flexion b/l CBC, BMP // 05:30 05/ 05:30 A/P: 68 yo female s/p Right parietal craniotomy with removal of meningioma Pt stable for discharge as per the surgical team, no further issues She may follow-up in the office in 2 weeks The care burciaga was discussed with the medical team and discharge instructions were completed.
--- NOTE | 2018-10-26 11:24 | PN ---
Progress Note, Physician History of Present Illness: Right parietal meningioma resection POD#3. Denies BRAGG and left facial tingling. - Current Medication List Current Medications: Active Medications Acetaminophen (Tylenol -) 650 mg PO Q6H PRN PRN Reason: HEADACHE Last Admin: 10/25/18 22:20 Dose: 650 mg Atorvastatin Calcium (Lipitor -) 40 mg PO HS [facility] Last Admin: 10/25/18 22:21 Dose: 40 mg Chlorhexidine Gluconate (Hibiclens For Decolonization -) 1 applic TP [facility] Last Admin: 10/25/18 22:21 Dose: 1 applic Donepezil HCl (Aricept -) 10 mg PO [facility] Last Admin: 10/25/18 22:21 Dose: 10 mg Escitalopram Oxalate (Lexapro -) 10 mg PO DAILY [facility] Last Admin: 10/26/18 09:58 Dose: 10 mg Insulin Aspart (Novolog Vial Sliding Scale -) [address] [facility]; Protocol Last Admin: 10/26/18 11:18 Dose: Not Given Levothyroxine Sodium (Synthroid -) 75 mcg PO DAILY@0700 [facility] Last Admin: 10/26/18 06:24 Dose: 75 mcg Mupirocin (Bactroban Ointment (For Decolonization) -) 1 applic NS BID [facility] Stop: 10/29/18 09:59 Last Admin: 10/26/18 09:58 Dose: 1 applic Oxycodone HCl (Roxicodone -) 5 mg PO Q6H PRN PRN Reason: PAIN LEVEL 6-10 Pantoprazole Sodium (Protonix -) 40 mg PO DAILY [facility] Last Admin: 10/26/18 09:57 Dose: 40 mg Pregabalin (Lyrica -) 100 mg PO BID [facility] Ramipril (Altace -) 2.5 mg PO DAILY [facility] Last Admin: 10/26/18 10:01 Dose: 2.5 mg Senna/Docusate Sodium (Pericolace -) 1 tablet PO BID [facility] Last Admin: 10/26/18 09:57 Dose: 1 tablet - Objective Vital Signs: Vital Signs Temperature 99 F 10/26/18 09:56 Pulse Rate 52 L 10/26/18 09:56 Respiratory Rate 16 10/26/18 09:00 Blood Pressure 107/60 10/26/18 08:00 O2 Sat by Pulse Oximetry (%) 90 L 10/26/18 10:00 Constitutional: Yes: No Distress, Calm Neck: Yes: Supple Cardiovascular: Yes: Regular Rate and Rhythm Respiratory: Yes: Regular, CTA Bilaterally Gastrointestinal: Yes: Normal Bowel Sounds, Soft Edema: No Labs: CBC, BMP 10/26/18 05:30 10/26/18 05:30 INR, PTT INR 1.05 (0.83-1.09) 10/24/18 05:30 - ....Imaging EKG: Report Reviewed (Tele: SB) Problem List - Problems (1) Elevated LFTs Code(s): R94.5 - ABNORMAL RESULTS OF LIVER FUNCTION STUDIES (2) Left face and left arm tingling Code(s): R20.2 - PARESTHESIA OF SKIN (3) Headache Code(s): R51 - HEADACHE Qualifiers: Headache type: tension-type Headache chronicity pattern: acute headache Intractability: not intractable Qualified Code(s): G44.209 - Tension-type headache, unspecified, not intractable (4) Hyperlipidemia Code(s): E78.5 - HYPERLIPIDEMIA, UNSPECIFIED Qualifiers: Hyperlipidemia type: pure hypercholesterolemia Qualified Code(s): E78.00 - Pure hypercholesterolemia, unspecified; E78.0 - Pure hypercholesterolemia (5) Hypertension Code(s): I10 - ESSENTIAL (PRIMARY) HYPERTENSION Qualifiers: Hypertension type: essential hypertension Qualified Code(s): I10 - Essential (primary) hypertension (6) Hypothyroidism Code(s): E03.9 - HYPOTHYROIDISM, UNSPECIFIED Qualifiers: Hypothyroidism type: unspecified Qualified Code(s): E03.9 - Hypothyroidism , unspecified (7) Sinus bradycardia Code(s): R00.1 - BRADYCARDIA, UNSPECIFIED (8) Meningioma Code(s): D32.9 - BENIGN NEOPLASM OF MENINGES, UNSPECIFIED Assessment/Plan 10/19/2018 Echo: Norml LV size and fxn, mild MR 1. POD #3 s/p Right parietal craniotomy w/ excision of meningioma and portion of dura Asymptomatic sinus bradycardia 2. Left facial numbness, rt parietal meningioma vs partial seizure 3. Hypothyroidism 4. Hyperlipidemia 5. HTN heart disease 6. Abnl LFTs downtrending P:1. Avoid AV david agents 2. Continue Altace 2.5 qd, Lipitor 40 qd, resume ASA 81 qd once post-op hemostasis achieved 3. No indication for PPM at this point, may pursue ETT to confirm chronotropic competency 4. Taper steroids
--- NOTE | 2018-10-26 11:36 | PN ---
Progress Note, Physician History of Present Illness: seen and examined at bedside. no complaint. tmax overnight 100.8F. eating and sleeping well. no headache, dizziness, nausea or vomiting - Current Medication List Current Medications: Active Medications Acetaminophen (Tylenol -) 650 mg PO Q6H PRN PRN Reason: HEADACHE Last Admin: 10/25/18 22:20 Dose: 650 mg Atorvastatin Calcium (Lipitor -) 40 mg PO [facility] Last Admin: 10/25/18 22:21 Dose: 40 mg Chlorhexidine Gluconate (Hibiclens For Decolonization -) 1 applic TP HS [facility] Last Admin: 10/25/18 22:21 Dose: 1 applic Donepezil HCl (Aricept -) 10 mg PO HS [facility] Last Admin: 10/25/18 22:21 Dose: 10 mg Escitalopram Oxalate (Lexapro -) 10 mg PO DAILY [facility] Last Admin: 10/26/18 09:58 Dose: 10 mg Insulin Aspart (Novolog Vial Sliding Scale -) 1 vial SQ [facility]; Protocol Last Admin: 10/26/18 11:18 Dose: Not Given Levothyroxine Sodium (Synthroid -) 75 mcg PO DAILY@0700 [facility] Last Admin: 10/26/18 06:24 Dose: 75 mcg Mupirocin (Bactroban Ointment (For Decolonization) -) 1 applic NS BID [facility] Stop: 10/29/18 09:59 Last Admin: 10/26/18 09:58 Dose: 1 applic Oxycodone HCl (Roxicodone -) 5 mg PO Q6H PRN PRN Reason: PAIN LEVEL 6-10 Pantoprazole Sodium (Protonix -) 40 mg PO DAILY [facility] Last Admin: 10/26/18 09:57 Dose: 40 mg Pregabalin (Lyrica -) 100 mg PO BID [facility] Ramipril (Altace -) 2.5 mg PO DAILY [facility] Last Admin: 10/26/18 10:01 Dose: 2.5 mg Senna/Docusate Sodium (Pericolace -) 1 tablet PO BID [facility] Last Admin: 10/26/18 09:57 Dose: 1 tablet - Objective Vital Signs: Vital Signs Temperature 99 F 10/26/18 09:56 Pulse Rate 52 L 10/26/18 09:56 Respiratory Rate 16 10/26/18 09:00 Blood Pressure 107/60 10/26/18 08:00 O2 Sat by Pulse Oximetry (%) 90 L 10/26/18 10:00 Constitutional: Yes: No Distress, Calm Cardiovascular: Yes: Regular Rate and Rhythm, S1, S2. No: Murmur Respiratory: Yes: CTA Bilaterally Gastrointestinal: Yes: Normal Bowel Sounds, Soft. No: Tenderness Edema: No Wound/Incision: Yes: Clean/Dry, Dressing Dry and Intact Neurological: Yes: Alert, Oriented Labs: CBC, BMP 10/26/18 05:30 10/26/18 05:30 INR, PTT INR 1.05 (0.83-1.09) 10/24/18 05:30 Impression/Plan Impression/Plan: 68 yo F h/o sinus bradycardia, hypothyroidism, HLD, HTN, dementia, TIA, and R parietal meningioma. Neuro - POD 3 removal of R meningioma - donepazil 10 mg hs - excitalopram 10 mg po daily - oxycodone 5 mg, lyrica TID and tylenol for pain as needed Cardio - continue ramipril for BP - lipitor 40 daily Pulm - stable GI - protonix 40 po daily Endo - continue SS FEN - diabetic diet - f/u PT Dispo: cleared by surgery to be discharged. discharge in progress. Visit type - Emergency Visit Emergency Visit: No - New Patient This patient is new to me today: No - Critical Care Critical Care patient: Yes Total Critical Care Time (in minutes): 35 Critical Care Statement: The care of this patient involved high complexity decision making to prevent further life threatening deterioration of the patient 's condition and/or to evaluate & treat vital organ system(s) failure or risk of failure.
[2018-10-26 13:09] VITALS: PULSE 54; TEMP 100
[2018-10-26] MEDS: ACETAMINOPHEN 325 MG TABLET (FP) PO PRN (13:26)
--- NOTE | 2018-10-26 13:43 | PN ---
Teaching Attending Note Name of Resident: Don Brenner ATTENDING PHYSICIAN STATEMENT I saw and evaluated the patient. I reviewed the resident's note and discussed the case with the resident. I agree with the resident's findings and plan as documented. SUBJECTIVE: Pt seen and examined in the ICU. Pain controlled. No specific complaints. No nausea or vomiting. OBJECTIVE: Vital Signs Period Temp Pulse Resp BP Sys/Mitchell Pulse Ox Last 24 Hr 99 F-100.8 F 48-73 12- 107-146/55-76 90-90 Intake & Output 10/23/18 10/24/18 10/25/18 10/26/18 23:59 23:59 23:59 23:59 Intake Total 2260 1175 490 180 Output Total 3170 2100 Balance -910 -925 490 180 Weight 72.257 kg 70.307 kg 72.03 kg Gen: NAD at rest Heart: RRR Lung: decreased breath sounds at the bases Abd: soft, nontender Ext: no edema CBC, BMP 10/26/18 05:30 10/26/18 05:30 Active Medications Acetaminophen (Tylenol -) 650 mg PO Q6H PRN PRN Reason: HEADACHE Last Admin: 10/26/18 13:26 Dose: 650 mg Atorvastatin Calcium (Lipitor -) 40 mg PO [facility] Last Admin: 10/25/18 22:21 Dose: 40 mg Chlorhexidine Gluconate (Hibiclens For Decolonization -) 1 applic TP [facility] Last Admin: 10/25/18 22:21 Dose: 1 applic Donepezil HCl (Aricept -) 10 mg PO [facility] Last Admin: 10/25/18 22:21 Dose: 10 mg Escitalopram Oxalate (Lexapro -) 10 mg PO DAILY [facility] Last Admin: 10/26/18 09:58 Dose: 10 mg Insulin Aspart (Novolog Vial Sliding Scale -) 1 vial SQ [facility]; Protocol Last Admin: 10/26/18 11:18 Dose: Not Given Levothyroxine Sodium (Synthroid -) 75 mcg PO DAILY@0700 [facility] Last Admin: 10/26/18 06:24 Dose: 75 mcg Mupirocin (Bactroban Ointment (For Decolonization) -) 1 applic NS BID [facility] Stop: 10/29/18 09:59 Last Admin: 10/26/18 09:58 Dose: 1 applic Oxycodone HCl (Roxicodone -) 5 mg PO Q6H PRN PRN Reason: PAIN LEVEL 6-10 Pantoprazole Sodium (Protonix -) 40 mg PO DAILY [facility] Last Admin: 10/26/18 09:57 Dose: 40 mg Pregabalin (Lyrica -) 100 mg PO BID [facility] Ramipril (Altace -) 2.5 mg PO DAILY [facility] Last Admin: 10/26/18 10:01 Dose: 2.5 mg Senna/Docusate Sodium (Pericolace -) 1 tablet PO BID [facility] Last Admin: 10/26/18 09:57 Dose: 1 tablet ASSESSMENT AND PLAN: Meningioma s/p R Parietal Craniotomy/Meningioma Resection HTN Hypercholesterolemia Hypothyroidism Asymptomatic Bradycardia - pain control - rehab/PT - DVT prophylaxis - can monitor on floor - d/c planning
--- NOTE | 2018-10-26 13:46 | PATH ---
Surgical Pathology Report Patient Name: DENIA STEPHEN [facility]. Rec. #: [id number] /Age/Gender: 1950 (Age: 68) / F Account: [id number] Location: ICU [facility] Taken: 10/23/2018 Received: 10/24/2018 Reported: 10/26/2018 Physicians: Alis Larson M.D. Specimen(s) Received MENINGLOMA Clinical History Paresthesias, bradycardia, headache, parietal seizures Final Diagnosis MENINGIOMA, EXCISION: PSAMMOMATOUS MENINGIOMA, GRADE 1. Comment: Immunohistochemical stains performed and interpreted at [facility] show the tumor cells to be positive for MN (focal) and S100 (diffuse), supporting the diagnosis of meningioma. This case was discussed with Dr. Ratliff on October 26, 2018. Electronically Signed Magan Duffy M.D. Gross Description Received in formalin labeled "meningioma," is a 2.2 x 1.1 x 0.1 cm portion of delarosa membranous material. The specimen displays a 0.7 x 0.6 cm nodule. One surface is inked green and the opposing surface is inked blue. The specimen is serially sectioned. The specimen is entirely submitted in one cassette. 10/24/2018 [facility]
--- NOTE | 2018-10-26 13:53 | DS ---
"Physical Exam: SUBJECTIVE: Patient seen and examined at the bedside. feels well, in no acute distress. still having left arm numbness, but tell me that she has had this for approximately 3 years. denies facial numbness. She follows Dr. Hector and will see him as an outpatient. discussed with Dr. Hector who recommended Lyrica 100mg BID and follow up with him in 1 week. OBJECTIVE: Patient should have an increase of her home health aide times post hospitalization as her needs have increased, she requires more help for her ADLs. Further, she would benefit from VNS services for left sided weakness and BP monitoring. She will follow up with her PCP and Dr. Hector in 1 week. She will follow up with Dr. Daugherty in 2 weeks. Vital Signs Period Temp Pulse Resp BP Sys/Mitchell Pulse Ox Last 24 Hr 99 F-100.8 F 48-73 12-19 107-146/55-76 90-90 PHYSICAL EXAM GENERAL: The patient is awake, alert, and fully oriented, in no acute distress. HEAD: s/p crainiotomy, head bandage clean/dry/intact - reinforced by surgery EYES: PERRL, extraocular movements intact, sclera anicteric, conjunctiva clear. No ptosis. ENT: Ears normal, nares patent, oropharynx clear without exudates, moist mucous membranes. NECK: Trachea midline, full range of motion, supple. HEART: Regular rate and rhythm ABDOMEN: Soft, nontender, nondistended, normoactive bowel sounds EXTREMITIES: no edema. left arm weakness, which appears to be chronic. will need neuro follow up. NEUROLOGICAL: Normal speech, gait not observed. PSYCH: Normal mood, normal affect. LABS Laboratory Results - last 24 hr 10/25/18 10/25/18 10/26/18 15:42 23:18 05:30 WBC 13.2 H RBC 4.41 Hgb 11.7 Hct 36.2 MCV 82.1 MCH 26.5 MCHC 32.3 RDW 14.7 Plt Count 244 MPV 9.9 Sodium Potassium Chloride Carbon Dioxide Anion Gap BUN Creatinine Creat Clearance w eGFR POC Glucometer 106 113 Random Glucose Calcium Phosphorus Magnesium 10/26/18 10/26/18 10/26/18 05:30 06:21 11:12 WBC RBC Hgb Hct MCV MCH MCHC RDW Plt Count MPV Sodium 139 Potassium 4.2 Chloride 102 Carbon Dioxide 31 Anion Gap 7 L BUN 14 Creatinine 0.9 Creat Clearance w eGFR 62.64 POC Glucometer 85 90 Random Glucose 101 Calcium 8.6 Phosphorus 4.5 Magnesium 2.0 HOSPITAL COURSE: Patient is a 68 year old female with a significant past medical history of hypertension, hyperlipidemia, non insulin dependent diabetes, GERD, TIA, migranes, osteoarthritis, osteoporosis, hypothyroidism s/p thyroidectomy. She was admitted on 10/20/18 after she experienced left facial upper extremity and lower extremity paresthesias as well as paresthesias around her lips when she woke up in the morning, associated with headache. She also c/o some left upper and lower extremity weakness. Patient went for endocrine apt with Dr. Ohara and found to be very bradycardic and sent to the ED for further evaluation. Patient was seen and evaluated by neurosurgery and underwent a Right parietal craniotomy with removal of meningioma on 10/23/2018. imaging: [facility] MRI:no evidence of demyelinating plaques, hemorrhage or acute infarction. 7mm in diameter sharply delinated enhancing focus in right parietal convexity adjacent to the dura evident on axil image compatible for a small meningioma. HOSPITAL COURSE BY PROBLEM LIST: Neuro: post of day #3 crainiotomy s/p meningioma resection. Her mentation remained at baseline post surgery. She is awake and alert and denies any headaches or visual defects. She denies facial numbness or tingling. Continues to have left arm weakness which she states is chronic for approximately 3 years. She is seen and followed by Dr. Hector and agrees to see him as an outpatient. Card Hypertension. controlled on ramipril 2.5mg. She will benefit from having VNS follow up for close monitoring of her BP. Follow up with cardiology as an outpatient recommended. DISCHARGE PLAN: Discharge home with ORGANIZATIONAL DEVELOPMENT MANAGER and VNS. ORGANIZATIONAL DEVELOPMENT MANAGER services is currently 4 hours per day. She should be evaluated for an increase of her ORGANIZATIONAL DEVELOPMENT MANAGER hours s/p surgery to continue to assist in all her ADLs. VNS to follow up outpatient and offer patient physical therapy at home. Date of Admission:10/20/18 Date of Discharge: 10/26/18 full code Minutes to complete discharge: 60 Discharge Summary Reason For Visit: PARESTHESIS,BRADYCARDIA,HEADACHE,TINGLING OF LEFT Current Active Problems Bradycardia (Acute) Elevated LFTs (Acute) Left face and left arm tingling (Acute) Left facial numbness (Acute) Meningioma (Acute) Paresthesia (Acute) Stroke-like symptoms (Acute) Condition: Improved - Instructions Diet, Activity, Other Instructions: Post Operative Instructions Physical Activity Resume your normal everyday activity as tolerated. No heavy lifting or exercise until seen by your surgeon. You may walk unlimited amounts and climb stairs. Do not operate a vehicle while taking narcotic medication or until seen for your follow up appointment. Wound Care May shower and wash hair with [employer]'s [employer] baby shampoo. Please do not apply any other hair care products to the scalp. Your khari will be removed during your post-operative follow-up visit. Diet There are no dietary restrictions. Eat healthy, high-fiber foods. Drink 6-8 glasses of liquid each day. This will assist in keeping your bowels regular. Pain Management You may take Tylenol(acetaminophen) or ibuprofen(motrin). Any pain prescription medication ordered should be taken as prescribed for moderate to severe pain. Call Dr Ratliff for any of the following: Severe pain not relieved by medication Fever of 101 or higher Excessive bleeding or drainage on dressing Inability to urinate Any chest pain or shortness of breath, seek Emergency Care. Call the office to confirm a post-operative appointment for 2-3 weeks post-op Leandro Daugherty MD [facility] [address] [place] [address]. [place] [address] [facility] This report was requested by: Puma Thompson | Reference #: [id number] Referrals: Nate Hector MD [Staff Physician] - 1 Week (please see Dr. Hector in one week) Disposition: HOME - Home Medications Comprehensive Discharge Medication List: Ambulatory Orders Celecoxib [CeleBREX -] 50 mg PO BID 04/05/16 Donepezil HCl [Aricept -] 10 mg PO DAILY 04/05/16 Escitalopram Oxalate [Lexapro -] 10 mg PO DAILY 04/05/16 Levothyroxine [Synthroid -] 50 mcg PO DAILY 04/05/16 Omeprazole Magnesium [Prilosec] 40 mg PO DAILY 04/05/16 Simvastatin [Zocor -] 40 mg PO HS 04/05/16 traZODone HCL [Trazodone HCl] 50 mg PO ASDIR 04/05/16 Butalb/Acetaminophen/Caffeine [Fioricet 50-300-40 mg Capsule] 1 each PO QID PRN #12 capsule 04/14/16 Atorvastatin Ca [Lipitor] 40 mg PO HS #30 tablet 10/26/18 Pregabalin [Lyrica -] 100 mg PO BID #60 capsule MDD 2 10/26/18 Ramipril [Altace] 2.5 mg PO DAILY #30 capsule 10/26/18 This patient is new to me today: Yes Date on this admission: 10/26/18 Emergency Visit: No Critical Care patient: No - Discharge Referral Referred to [facility] No"
[2018-10-26 14:08] VITALS: BP 106/64
[2018-10-26] MEDS ORDERED: PREGABALIN 100 MG CAPSULE PO SCH (22:00)
--- NOTE | 2018-10-30 15:35 | SURG ---
Surgery Vocational Nursing Instructor Note Vocational Nursing Instructor: Puma Thompson PA-C Date of Service: 10/23/18 Diagnosis: Right parietal meningioma Procedure: 1. Right parietal craniotomy for resection of brain mass 2. Stereotactic Guidance I was present for the entirety of the operative procedure. For further detail, please refer to operative report. Visit type - Case Type Case Type: ED Admission
== END 2018-10-26 16:45 | disposition home health service (06) | DRG 27 ==
LOC: JER 16:21 → SUPCPDRO 16:21 → JERBED 19:37 → J4W 10-19 16:12 → OBSVTOIN 10-20 11:23 → JSAMEDAYSX 10-23 14:15 → JICU 10-23 21:32
PROVIDERS: ADMIT Internal Medicine; ATTEND Nurse Practitioner Family
PROC: 00B10ZZ Excision of Cerebral Meninges, Open Approach (ICD-10-PCS; 2018-10-23)
PROC: 00B20ZZ Excision of Dura Mater, Open Approach (ICD-10-PCS; principal; 2018-10-23 09:00)
DX: D32.0 Benign neoplasm of cerebral meninges (principal); R00.1 Bradycardia, unspecified; I11.9 Hypertensive heart disease without heart failure; E11.9 Type 2 diabetes mellitus without complications; Z79.84 Long term (current) use of oral hypoglycemic drugs; G40.909 Epilepsy, unspecified, not intractable, without status epilepticus; K76.0 Fatty (change of) liver, not elsewhere classified; E78.5 Hyperlipidemia, unspecified; E89.0 Postprocedural hypothyroidism; Z85.42 Personal history of malignant neoplasm of other parts of uterus; Z85.89 Personal history of malignant neoplasm of other organs and systems; Z90.710 Acquired absence of both cervix and uterus; I25.2 Old myocardial infarction; Z86.73 Personal history of transient ischemic attack (TIA), and cerebral infarction without residual deficits; K21.9 Gastro-esophageal reflux disease without esophagitis; M81.0 Age-related osteoporosis without current pathological fracture; M19.90 Unspecified osteoarthritis, unspecified site; Z96.653 Presence of artificial knee joint, bilateral; I25.10 Atherosclerotic heart disease of native coronary artery without angina pectoris; Z87.891 Personal history of nicotine dependence; F41.9 Anxiety disorder, unspecified
CPT/HCPCS: 36415; 70450-TC; 70551-TC; 70552-TC; 71045-TC-FY; 76705-TC; 80048; 80053; 80061; 80076; 81003; 82550; 82607; 82962; 83036; 83721; 83735; 83880; 84100; 84439; 84443; 84484; 85025; 85027; 85610; 85730; 86038; 86850; 86900; 86901; 88307-TC; 88341-TC; 93005; 93010; 93225; 93226; 93306-TC; 93880-TC; 94010; 94760; 97116-GP; 97161-GP; 99284-25; G0378; J0131; J1100; J1644

== ENCOUNTER 2022-12-09 22:41 | Emergency (ER) | payer BC, OTHER ==
[~2022-12-09 22:41] MED LIST: LIDOCAINE PATCH REMOVAL MC SCH
[2022-12-09 22:49] VITALS: BMI 30.2
[2022-12-09] MEDS ORDERED: ACETAMINOPHEN 500 MG TABLET (FP) PO ONE (23:31)
[2022-12-09] MEDS ORDERED: LIDOCAINE 5% TOPICAL PATCH TP ONE (23:31)
[2022-12-09] MEDS ORDERED: diazePAM 5 MG TABLET PO ONE (23:32)
[2022-12-09] MEDS ORDERED: diazePAM 5 MG TABLET ONE (23:45)
[2022-12-09] MEDS ORDERED: LIDOCAINE 5% TOPICAL PATCH ONE (23:46)
[2022-12-09] MEDS ORDERED: ACETAMINOPHEN 325 MG TABLET (FP) ONE (23:46)
[2022-12-10 03:01] VITALS: BP 131/86; PULSE 77; RESP 16; TEMP 97.9
== END 2022-12-10 03:12 | disposition home or self-care (01) ==
LOC: JER 22:41
DX: R51.9 Headache, unspecified (principal); M54.2 Cervicalgia; M79.10 Myalgia, unspecified site; G89.29 Other chronic pain; M54.9 Dorsalgia, unspecified; M25.559 Pain in unspecified hip; R20.0 Anesthesia of skin
CPT/HCPCS: 70450-TC; 72125-TC; 72128-TC; 72131-TC; 99284-25

== ENCOUNTER 2023-11-14 15:56 | Emergency (ER) | payer OTHER ==
[2023-11-14 16:14] VITALS: RESP 19; TEMP 97.8; BMI 29.7
[2023-11-14] MEDS ORDERED: LIDOCAINE 4% PATCH TP ONE (18:17)
[2023-11-14] MEDS: LIDOCAINE 4% PATCH TP ONE (19:05)
[2023-11-14 20:06] VITALS: BP 122/78; PULSE 72
[2023-11-15] MEDS ORDERED: LIDOCAINE PATCH REMOVAL MC SCH (06:00)
== END 2023-11-14 20:09 | disposition home or self-care (01) ==
LOC: JER 15:56
DX: S01.112A Laceration without foreign body of left eyelid and periocular area, initial encounter (principal); S80.211A Abrasion, right knee, initial encounter; W01.198A Fall on same level from slipping, tripping and stumbling with subsequent striking against other object, initial encounter
CPT/HCPCS: 70450-TC; 72100-TC-FY; 72125-TC; 72170-TC-FY; 99284-25